=== PATIENT | male | born 1975 | race Hispanic/Latino ===

== ENCOUNTER → 2021-02-03 01:04 | Outpatient (CLI) | payer OTHER, SELFPAY ==
[2021-02-03 19:48] LABS: SARS-CoV-2 RNA PCR Negative
== END ==
PROVIDERS: PCP Family Medicine; Visit Provider Internal Medicine Gastroenterology
DX: Z01.812 Encounter for preprocedural laboratory examination (principal); Z20.822 Contact with and (suspected) exposure to COVID-19
CPT/HCPCS: C9803; U0003; U0005

== ENCOUNTER 2021-02-06 00:40 | Day surgery (SDC) | payer OTHER, SELFPAY ==
[2021-01-29 10:30] VITALS: BMI 30.6
[2021-02-06 09:49] VITALS: BP 109/71; PULSE 96; RESP 18; TEMP 36.7; O2SAT 98
[2021-02-06 10:00] LABS: Glucose Point of Care 262 (65-105)
[2021-02-06] MEDS: LACTATED RINGERS 1,000 ML 150 ML IV CONT (10:00)
--- NOTE | 2021-02-06 10:50 | WPDANESEPPF ---
Anes - Initial Pre Proc Eval Procedure: Operation Date: 02/06/21 11:00 Proposed Procedures p Esophagogastroduodenoscopy & Colonoscopy - Saul Whalen MD Date/Time: 02/06/21 10:50 Surgeon: Saul Whalen MD Pre Op Diagnosis: IBS,Diarrhea,Nausea,Abdominal Pain Patient Data Age: 46 Gender: M Height: 5 ft 9 in Weight: 93.5 kg Last Vital Signs Temp 36.7 C 02/06/21 09:49 Pulse 96 02/06/21 09:49 Resp 18 02/06/21 09:49 BP 109/71 02/06/21 09:49 Pulse Ox 98 02/06/21 09:49 Allergies Allergy/AdvReac Type Severity Reaction Status Date / Time No Known Allergies Allergy Unknown Verified 02/06/21 09:48 Home Medications Medication Instructions Recorded Confirmed Type aspirin 81 mg tablet,delayed 81 mg PO DAILY 08/28/20 02/06/21 History release insulin glargine 100 unit/mL 40 unit SUB-Q DAILY 08/28/20 02/06/21 History subcutaneous solution insulin lispro 100 unit/mL 35 unit SUB-Q DAILY 08/28/20 02/06/21 History subcutaneous pen dulaglutide [Trulicity] 0.75 mg SUBCUT WEEKLY 01/29/21 02/06/21 History rosuvastatin 10 mg PO DAILY 01/29/21 02/06/21 History Laboratory Tests 02/06/21 09:53 POC Capillary Glucose 262 mg/dl H mg/dl (65-105) Patient hx anesthesia problems: none Family hx anesthesia problems: none COUNT INCLUDES [facility] Past Medical History Medical History Diabetes Gastroparesis Hyperlipidemia Irritable bowel syndrome with diarrhea Nausea Social History Social History Smoking status: Never smoker Alcohol intake: never Substance use: never Substance use type: does not use Living arrangements: with family Spiritual care concerns: No Anes - Eval Final PreProcedure Day of Procedure 02/06/21 10:50 Patient weight: obese Heart: regular rate and rhythm Lungs: clear to auscultation Airway: Mallampati scale class II Neurological: alert and oriented Last oral intake: >/= 8 hours ASA classification: III Emergent: no Anesthetic plan: proceed Anesthesia type and monitoring: general GIVS and standard monitoring Informed Consent: The patient's anesthetic plan and its attendant risks and benefits were discussed with the patient/family/POA. Questions were solicited and answers provided to the satisfaction of the patient/family/POA.
--- NOTE | 2021-02-06 11:11 | PM.HPGS ---
History of Present Illness History of Present Illness Consent: Risks, benefits, and alternatives have been discussed and questions answered. Patient agrees to proceed with procedure. Chief complaint: IBS,Diarrhea,Nausea,Abdominal Pain Narrative: Justin Guzman is a 46 year old male with diarrhea and gastroparesis, he tried viberzi, cholestyramine but did not work, found that after using bridgette-seltzer his diarrhea will get better. He also had DM. Review of Systems Constitutional: Constitutional: Denies headache(s) and Denies weakness Eyes: Eyes: Denies blurry vision ENT: Reports Normal hearing present, Denies headache(s) and Denies neck pain Cardiovascular: Cardiovascular: Denies chest pain and Denies dyspnea Respiratory: Respiratory: Denies dyspnea Gastrointestinal: Gastrointestinal: Reports no additional gastrointestinal complaints Genitourinary: Genitourinary: Denies dysuria Musculoskeletal: Musculoskeletal: Denies neck pain Integumentary/Breasts: Skin/Breast: Denies dry skin Neurologic: Reports Normal hearing present, Denies headache(s) and Denies weakness Psychiatric: Psychiatric: Denies anxiety Endocrine: Endocrine: Denies change in body appearance Hematologic/Lymphatic: Hematologic/Lymphatic: Denies easy bleeding Allergic/Immunologic: Allergic/Immunologic: Denies urticaria PMFSH Past Medical History Medical History Diabetes Gastroparesis Hyperlipidemia Irritable bowel syndrome with diarrhea Nausea Social History Social History Smoking status: Never smoker Alcohol intake: never Substance use: never Substance use type: does not use Living arrangements: with family Spiritual care concerns: No Meds Home Medications and Allergies Home Medications Medication Instructions Recorded Confirmed Type aspirin 81 mg tablet,delayed 81 mg PO DAILY 08/28/20 02/06/21 History release insulin glargine 100 unit/mL 40 unit SUB-Q DAILY 08/28/20 02/06/21 History subcutaneous solution insulin lispro 100 unit/mL 35 unit SUB-Q DAILY 08/28/20 02/06/21 History subcutaneous pen dulaglutide [Trulicity] 0.75 mg SUBCUT WEEKLY 01/29/21 02/06/21 History rosuvastatin 10 mg PO DAILY 01/29/21 02/06/21 History Allergies Allergy/AdvReac Type Severity Reaction Status Date / Time No Known Allergies Allergy Unknown Verified 02/06/21 09:48 Vital Signs Vital Signs - 24 hr 02/06/21 09:49 Temperature 98.1 F Pulse Rate 96 Respiratory Rate 18 Blood Pressure 109/71 Pulse Oximetry 98 Exam Const: General: comfortable and no acute distress HENMT: General nose exam: Normal nares present Eyes: General: appearance normal, both eyes and all related structures Neck: Neck: no JVD Resp: Auscultation: clear to auscultation bilaterally Cardio: Rate: regular rate Rhythm: regular rhythm GI: Inspection: non-distended GI Palp: Yes Soft to palpation Skin: General skin exam: normal color Neuro: General: gait normal Speech: normal speech Extrem: General: normal to inspection Psych: Mental Status: mental status grossly normal Assessment and Plan Assessment and plan (1) Irritable bowel syndrome with diarrhea: Code(s): K58.0 - Irritable bowel syndrome with diarrhea Status: Acute Assessment and Plan: colonoscopy with bx, assess for microscopic colitis (2) Diabetes mellitus type 2 in nonobese: Code(s): E11.9 - Type 2 diabetes mellitus without complications Status: Acute (3) Gastroparesis: Code(s): K31.84 - Gastroparesis Status: Acute Assessment and Plan: egd with bx
[2021-02-06 11:46] VITALS: BP 109/74; PULSE 93; RESP 20; O2SAT 97
--- NOTE | 2021-02-06 11:48 | SUR.OPER ---
EGD START 1119, END 1124 COLONOSCOPY START 1129, END 1143
[2021-02-06 11:56] VITALS: BP 128/77; PULSE 90; RESP 19; O2SAT 100
[2021-02-06 12:04] LABS: Glucose Point of Care 255 (65-105)
[2021-02-06 12:06] VITALS: BP 140/89; PULSE 92; RESP 18; O2SAT 100
== END 2021-02-06 12:20 | disposition home or self-care (01) ==
PROVIDERS: PCP Family Medicine; Visit Provider Internal Medicine Gastroenterology
PROC: 0DJ08ZZ Inspection of Upper Intestinal Tract, Via Natural or Artificial Opening Endoscopic (ICD-10-PCS; CPT 43235; principal; 2021-02-06 11:00)
DX: K58.0 Irritable bowel syndrome with diarrhea (principal); D12.5 Benign neoplasm of sigmoid colon; K64.8 Other hemorrhoids; K29.50 Unspecified chronic gastritis without bleeding; K58.9 Irritable bowel syndrome, unspecified; R11.0 Nausea; R10.9 Unspecified abdominal pain; E11.9 Type 2 diabetes mellitus without complications; K31.84 Gastroparesis; E78.5 Hyperlipidemia, unspecified; Z79.82 Long term (current) use of aspirin; Z79.4 Long term (current) use of insulin; E66.9 Obesity, unspecified; Z68.30 Body mass index [BMI] 30.0-30.9, adult
CPT/HCPCS: 45385; 45380; 43239; 82948; 88305; 88342; C9803; J7120; U0003; U0005

== ENCOUNTER 2021-09-23 11:48 | Emergency (ER) | payer OTHER, SELFPAY ==
[2021-09-23 11:56] VITALS: BP 161/82; PULSE 75; RESP 18; TEMP 36.8; O2SAT 99
--- NOTE | 2021-09-23 11:56 | ED.EXTPRO ---
HPI - Extremity Problem General Chief complaint: Extremity Problem,Nontraumatic Stated complaint: Blister Lt Foot Source: patient and RN notes reviewed Mode of arrival: ambulatory Limitations: no limitations History of Present Illness HPI Narrative: Justin is a 46-year-old male patient [facility] Patient complains of left great toe swelling and redness. Patient states he had a similar episode about 3 weeks ago and was treated with Bactrim. Patient states he finished the medicine without any issues and the toe healed. Patient noticed last week that he had a blister on the left anterior toe from rubbing. Patient noticed on Friday that was increased redness and warm to touch. Patient patient has a history of type 2 diabetes and is currently on insulin. 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 MD Complaint: extremity swelling Related Data Home Medications Medication Instructions Recorded Confirmed aspirin 81 mg tablet,delayed 81 mg PO DAILY 08/28/20 09/23/21 release insulin glargine 100 unit/mL 40 unit SUB-Q DAILY 08/28/20 09/23/21 subcutaneous solution insulin lispro 100 unit/mL 35 unit SUB-Q DAILY 08/28/20 09/23/21 subcutaneous pen Allergies Allergy/AdvReac Type Severity Reaction Status Date / Time canagliflozin [From Invokana] AdvReac Severe Other Verified 09/23/21 12:15 Review of Systems Review of Systems: CONSTITUTIONAL: Denies body aches, fever, chills, or sweats. EYES: Denies visual changes, redness, or discharge. ENT: Denies rhinorrhea, congestion, sore throat, or otalgia. CARDIOVASCULAR: Denies chest pain, palpitations, or edema. RESPIRATORY: Denies cough or dyspnea. GASTROINTESTINAL: Denies abdominal pain, nausea, vomiting, or diarrhea. GENITOURINARY: Denies dysuria or hematuria. SKIN: Denies rash, itching. + left great toe red and swollen. MUSCULOSKELETAL: Denies back pain, joint pain, or myalgia. NEUROLOGIC: Denies headache, numbness, tingling, or weakness. PSYCH: Denies depression or anxiety. All systems reviewed & are unremarkable except as noted in HPI and below PMFSH Past Medical History Medical History Bloating Diabetes Gastroparesis Hyperlipidemia Irritable bowel syndrome with diarrhea Nausea Social History Social History Smoking status: Never smoker Alcohol intake: never Substance use: never Substance use type: does not use Spiritual care concerns: No Comments At time of signature, I have reviewed and agree with nursing past medical, surgical, social and family history unless otherwise noted. Please see nursing chart for further information. There is no relevant family history pertinent to the presenting complaint Exam Narrative: GENERAL: Well-appearing, well-nourished, and in no acute distress. HEAD: Normocephalic, atraumatic. EYES: EOMI. No redness or drainage. Conjunctivae normal. ENT: Mucous membranes pink and moist. Nares clear. No rhinorrhea. TMs normal bilaterally. Throat normal. Uvula midline. NECK: Normal AROM. Supple. No lymphadenopathy. CHEST: No respiratory distress. Clear to auscultation. HEART: Regular rate and rhythm. No murmur appreciated. Normal peripheral pulses. ABDOMEN: Soft, nontender, nondistended, normal active bowel sounds. MUSCULOSKELETAL: No bony tenderness. EXTREMITIES: Normal range of motion. No edema. SKIN: Warm, dry, no rash. Capillary refill normal. Normal skin turgor. Left great toe erythemic with approximately 1cm round raised non-fluctuant , warm to touch, erythema extends to metatarso phalangeal joint. NEURO: No focal deficits. Alert and oriented x3. Gait steady. PSYCH: Normal affect. No signs of depression or anxiety. Course Vital Signs Vital signs: Vital Signs Temperature 36.8 C 09/23/21 11:56 Pulse Rate 75
[2021-09-23 12:30] VITALS: BP 142/86
== END 2021-09-23 12:34 | disposition home or self-care (01) ==
PROVIDERS: Emergency Provider Nurse Practitioner Family; PCP Family Medicine
DX: L03.032 Cellulitis of left toe (principal); E11.9 Type 2 diabetes mellitus without complications; E78.5 Hyperlipidemia, unspecified; E11.43 Type 2 diabetes mellitus with diabetic autonomic (poly)neuropathy; K31.84 Gastroparesis
CPT/HCPCS: 99213; G0463

== ENCOUNTER 2022-02-10 13:59 | Emergency (ER) | payer OTHER, SELFPAY ==
[2022-02-10 14:10] VITALS: BP 120/70; PULSE 93; RESP 20; TEMP 37.3; O2SAT 98
--- NOTE | 2022-02-10 14:14 | ED.URI ---
HPI - URI/Sore Throat General Chief Complaint: Upper Respiratory Infection Stated Complaint: Cough/Chills/Headache Time Seen by Provider: 02/10/22 14:14 Source: patient Mode of arrival: ambulatory Limitations: no limitations History of Present Illness HPI Narrative: 47-year-old male presents with complaint of runny nose, sore throat, cough, fatigue, body aches for 3 days. Patient concerned that he has the flu. Afebrile. Denies shortness of breath and chest pain. Taking DayQuil and NyQuil to treat symptoms. All systems reviewed and negative except as noted above. Related Data Home Medications Medication Instructions Recorded Confirmed aspirin 81 mg tablet,delayed 81 mg PO DAILY 08/28/20 02/10/22 release insulin glargine 100 unit/mL 40 unit SUB-Q DAILY 08/28/20 02/10/22 subcutaneous solution insulin lispro 100 unit/mL 35 unit SUB-Q DAILY 08/28/20 02/10/22 subcutaneous pen Allergies Allergy/AdvReac Type Severity Reaction Status Date / Time canagliflozin [From Invokana] AdvReac Severe Other Verified 02/10/22 14:14 Review of Systems Review of Systems: CONSTITUTIONAL: Denies fever. Reports chills, or sweats. EYES: Denies visual changes, redness, or discharge. ENT: Reports rhinorrhea, congestion, sore throat. Denies otalgia. CARDIOVASCULAR: Denies chest pain, palpitations, or edema. RESPIRATORY: Reports cough. Denies dyspnea. GASTROINTESTINAL: Denies abdominal pain, nausea, vomiting, or diarrhea. GENITOURINARY: Denies dysuria or hematuria. SKIN: Denies rash or itching. MUSCULOSKELETAL: Denies back pain, joint pain. Reports myalgia. NEUROLOGIC: Denies headache, numbness, or weakness. PSYCHIATRIC: Denies anxiety or depression. All other systems reviewed are negative, except as documented in HPI. [facility] Past Medical History Medical History Bloating Diabetes Gastroparesis Hyperlipidemia Irritable bowel syndrome with diarrhea Nausea Social History Social History Smoking status: Never smoker Alcohol intake: never Substance use: never Substance use type: does not use Spiritual care concerns: No Comments At time of signature, agree with nursing past medical, surgical, social and family history. There is no relevant family history pertinent to the presenting complaint. Exam Narrative: GENERAL: This is a well-nourished, well-developed patient, in no apparent distress. HEAD: normocephalic, atraumatic. EYES: PERRL. Sclera clear/white. Vision is grossly intact. EARS: External ears normal, auditory canals clear and without drainage, TMs normal without perforation. Hearing grossly intact. NOSE: External nose normal. Clear nasal drainage noted to both naris, mild there erythema. THROAT: Mucous membranes moist. Mild erythema to posterior pharynx with clear postnasal drainage.. NECK: Neck supple, non-tender without lymphadenopathy, masses or thyromegaly. CARDIOVASCULAR: Regular rate and rhythm without murmurs, gallops, or rubs. RESPIRATORY: Clear to auscultation. Breath sounds equal bilaterally. No wheezes, rales, or rhonchi. GASTROINTESTINAL: Abdomen soft, non-tender, nondistended. Bowel sounds are active. No hepato-splenomegaly, or palpable masses. No guarding. SKIN: warm, Dry, intact with no suspicious lesions or rash, good texture and turgor. NEURO: awake, alert, and oriented to person, place and time. There were no obvious focal neurologic abnormalities. EXTREMITIES: No joint tenderness, effusion, or edema noted. No calf tenderness. Negative Homans sign bilaterally. BACK: Nontender without deformity. No CVA tenderness. Course Course Level of Care: Express Care Visit Vital Signs Vital signs: Vital Signs Temperature 37.3 C 02/10/22 14:10 Pulse Rate 93 02/10/22 14:10 Respiratory Rate 20 02/10/22 14:10 Blood Pressure 120/70 02/10/22 14:10 Pulse Oximetry 98 02/10/22 14:10
[2022-02-10 14:28] VITALS: BP 120/70; PULSE 93; RESP 20; TEMP 37.3; O2SAT 98
== END 2022-02-10 15:00 | disposition home or self-care (01) ==
PROVIDERS: Emergency Provider Nurse Practitioner Family; PCP Family Medicine
DX: J06.9 Acute upper respiratory infection, unspecified (principal); E11.43 Type 2 diabetes mellitus with diabetic autonomic (poly)neuropathy; K31.84 Gastroparesis; E78.5 Hyperlipidemia, unspecified; Z79.82 Long term (current) use of aspirin; Z79.4 Long term (current) use of insulin
CPT/HCPCS: 87426; 87804; 99213; C9803; G0463

== ENCOUNTER 2022-09-23 09:28 | Emergency (ER) | payer OTHER, SELFPAY ==
--- NOTE | 2022-09-23 09:31 | ED.LOWEXIN ---
HPI - Extremity Injury (Lower) General Chief Complaint: Extremity Injury, Lower Stated Complaint: Left Foot Injury Time Seen by Provider: 09/23/22 09:31 Source: patient and RN notes reviewed History of Present Illness HPI Narrative: Patient is a 47-year-old male who presents the urgent care with complaints of a left lower leg injury. Patient states that 1 week ago he dropped a wooden pallet on his leg and he has been doctoring the wound with peroxide, alcohol and Neosporin. Patient is unsure if he is up-to-date on a tetanus shot. Patient states that he has no pain to the area and has been ambulating without difficulty but he is concerned about the increased redness surrounding the wound. Patient has not been evaluated since the injury. No other acute complaints. No acute distress noted. Patient aware of the plan of care. Some parts of this dictation were generated by voice recognition software and may contain typographical and/or grammatical inaccuracies. Related Data Home Medications Medication Instructions Recorded Confirmed atorvastatin 20 mg tablet 20 mg PO DAILY 09/23/22 09/23/22 insulin lispro-aabc 100 unit/mL 15 unit subcut TID 09/23/22 09/23/22 subcutaneous solution (Lyumjev U-100 Insulin) Allergies Allergy/AdvReac Type Severity Reaction Status Date / Time No Known Allergies Allergy Verified 09/23/22 09:56 Review of Systems Review of Systems: CONSTITUTIONAL: Denies fever, chills, or sweats. EYES: Denies visual changes, redness, or discharge. ENT: Denies rhinorrhea, congestion, sore throat, or otalgia. CARDIOVASCULAR: Denies chest pain, palpitations, or edema. RESPIRATORY: Denies cough or dyspnea. GASTROINTESTINAL: Denies abdominal pain, nausea, vomiting, or diarrhea. GENITOURINARY: Denies dysuria or hematuria. SKIN: Reports a wound to left lower leg with redness MUSCULOSKELETAL: Denies back pain, joint pain, or myalgia. NEUROLOGIC: Denies headache, numbness, or weakness. All other systems reviewed are negative, except as documented in HPI. PMFSH Comments At the time of my signature, I reviewed and agree with the nursing past medical, surgical, social, and family history. There is no relevant family history pertinent to the patient complaint. Exam Narrative: GENERAL: This is a well-nourished, well-developed patient, in no apparent distress. HEAD: normocephalic, atraumatic. EYES: PERRL. Sclera clear/white. Vision is grossly intact. EARS: External ears normal NOSE: External nose normal with no obvious nasal discharge, nares without redness, no rhinorrhea. THROAT: Mucous membranes moist NECK: Neck supple SKIN: Open and healing skin tear measuring 9 cm in length and 2 cm at the widest area with surrounding 12 x 6 cm erythema NEURO: awake, alert, and oriented to person, place and time. There were no obvious focal neurologic abnormalities. EXTREMITIES: No clubbing, cyanosis, or edema. No joint tenderness, effusion, or edema noted. No calf tenderness. Negative Homans sign left Course Course Level of Care: Express Care Visit Vital Signs Vital signs: Vital Signs Temperature 98.4 F 09/23/22 09:40 Pulse Rate 89 09/23/22 09:40 Respiratory Rate 20 09/23/22 09:40 Blood Pressure 146/86 H 09/23/22 09:40 Pulse Oximetry 100 09/23/22 09:40 Oxygen Delivery Room Air 09/23/22 09:40 Temperature 98.4 F 09/23/22 09:58 Pulse Rate 89 09/23/22 09:58 Respiratory Rate 20 09/23/22 09:58 Blood Pressure 146/86 H 09/23/22 09:58 Pulse Oximetry 100 09/23/22 09:58 Oxygen Delivery Room Air 09/23/22 09:58 Reviewed-patient is informed that they may have pre-hypertension or hypertension based on a blood pressure reading in the department. I recommend the patient call the primary care provider listed on their discharge instructions or a physician of their choice this week to arrange follow-up for further evaluation of possible pre-hypertension or hypertension. MDM - Extremity Injury (Lo
[2022-09-23 09:40] VITALS: BP 146/86; PULSE 89; RESP 20; TEMP 36.9; O2SAT 100
[2022-09-23 09:58] VITALS: BP 146/86; PULSE 89; RESP 20; TEMP 36.9; O2SAT 100
[2022-09-23] MEDS: TETANUS,DIPHTHERIA,AC PERTUSSIS ADULT (0.5 ML) BOOSTRIX IM (10:12)
== END 2022-09-23 10:32 | disposition home or self-care (01) ==
PROVIDERS: Emergency Provider Nurse Practitioner Family
DX: S81.812A Laceration without foreign body, left lower leg, initial encounter (principal); L08.9 Local infection of the skin and subcutaneous tissue, unspecified; W20.8XXA Other cause of strike by thrown, projected or falling object, initial encounter; Z23 Encounter for immunization; E78.00 Pure hypercholesterolemia, unspecified; E11.9 Type 2 diabetes mellitus without complications
CPT/HCPCS: 90471; 90715; 99213; G0463

== ENCOUNTER 2023-02-25 05:25 | Observation (INO) | payer OTHER, SELFPAY ==
--- NOTE | ~2023-02-25 | XR_ITS ---
EXAMINATION: XR foot LT min 3V DATE: 02/25/2023 16:22 INDICATION: Left foot wound, ulcer of the great toe and fifth toe TECHNIQUE: Dorsoplantar, lateral, and 2 oblique views of the left foot were obtained. COMPARISON: 11/27/2016 and today FINDINGS: Osteomyelitis of the fifth toe is again noted as described on radiographs from earlier toda y. There is soft tissue swelling of the first toe. No definite associated osseous abnormality is iden tified. 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 IMPRESSION: 1. Soft tissue swelling of the first toe without associated osseous abnormality. 2. Osteomyelitis of the fifth toe. Reviewed, dictated and finalized at location F. IMPRESSION: 1. Soft tissue swelling of the first toe without associated osseous abnormality . 2. Osteomyelitis of the fifth toe.
--- NOTE | ~2023-02-25 | XR_ITS ---
EXAMINATION: XR toe 5th LT min 2V DATE: 02/25/2023 09:50 INDICATION: Diabetic ulcer of left fifth toe. TECHNIQUE: 4 views of left fifth toe were obtained. COMPARISON: Left foot radiographs 11/13/2013 FINDINGS: There is dorsal subluxation of fifth middle phalanx with respect to the proximal phalanx. T here are erosions of the head of the fifth proximal phalanx and the fifth middle and distal phalanges , consistent with osteomyelitis. There is soft tissue swelling of the fifth digit. IMPRESSION: 1. Osteomyelitis of the fifth digit phalanges. Reviewed, dictated and finalized at location A.
[2023-02-25 05:35] VITALS: BP 159/83; PULSE 86; RESP 20; O2SAT 100
--- NOTE | 2023-02-25 07:41 | ED.EXTPRO ---
HPI - Extremity Problem General Chief complaint: Extremity Problem,Nontraumatic Stated complaint: toe infection Time Seen by Provider: 02/25/23 07:41 Source: patient and RN notes reviewed Mode of arrival: ambulatory Limitations: no limitations History of Present Illness HPI Narrative: Patient is 48 years old male presented to the ED with pain at the left fifth toe started couple weeks ago, started on Keflex 3 times daily for the last 5 days without improvement. His foot is still warm, hot to touch, with pain, no discharge. Patient wears steel boot at work. He denies any fever, chills, nausea, vomiting. Related Data Home Medications Medication Instructions Recorded Confirmed atorvastatin 20 mg tablet 20 mg PO DAILY 09/23/22 09/23/22 insulin lispro-aabc 100 unit/mL 15 unit subcut TID 09/23/22 09/23/22 subcutaneous solution (Lyumjev U-100 Insulin) Allergies Allergy/AdvReac Type Severity Reaction Status Date / Time No Known Allergies Allergy Verified 02/25/23 07:33 Review of Systems Review of Systems: All systems reviewed & are unremarkable except as noted in HPI and below Exam Narrative: General appearance: Well-developed, well-nourished Skin: Normal color Head: Normocephalic, nontraumatic Eyes: Clear conjunctiva ENT: Oropharynx normal, ears normal, nose normal Neck: Supple, nontender Chest and respiratory: Airway patent, no respiratory distress, no accessory muscle use Heart: Regular rate/rhythm Abdomen: Soft, nontender, no organomegaly, quiet bowel sounds Vascular: Normal peripheral pulses, normal capillary refill. 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, no gross motor deficit Course Reevaluation(s) Reevaluation #1: No new changes compared to on arrival Date: 02/25/23 Time: 10:49 Vital Signs Vital signs: Vital Signs Pulse Rate 86 02/25/23 05:35 Respiratory Rate 20 02/25/23 05:35 Blood Pressure 159/83 H 02/25/23 05:35 Pulse Oximetry 100 02/25/23 05:35 Pulse Rate 86 02/25/23 05:35 Respiratory Rate 20 02/25/23 05:35 Blood Pressure 159/83 H 02/25/23 05:35 Pulse Oximetry 100 02/25/23 05:35 MDM - Extremity (Nontraumatic) MDM Narrative Medical decision making narrative: 48 years old male with history of diabetes presents with Improving ulcer and pain at the left fifth toe after starting on Keflex for the last 5 days. Differential diagnosis diabetic ulcer, osteomyelitis, failed outpatient treatment. Work-up today showed normal CBC, normal CMP with glucose of 155, x-ray of the left fifth toe showed osteomyelitis of the phalanges. Patient received vancomycin on arrival to the ED, admission to the hospitalist for further evaluation is recommended. Differential Diagnosis Differential diagnosis: Likely other (Failed outpatient treatment, osteomyelitis, diabetic ulcer) Lab Data 02/25/23 08:11 02/25/23 08:11 Labs: Lab Results 02/25/23 02/25/23 Range/Units 08:11 08:11 WBC 5.9 (4.5-10.0) K/mm3 RBC 4.31 L (4.6-6.20) M/mm3 Hgb 13.1 L (14.0-18.0) g/dL Hct 38.3 L (42.0-52.0) % MCV 88.9 (80-100) fl MCH 30.4 (26-34) pg MCHC 34.2 (32-36) g/dl RDW 12.7 (11.5-14.5) % Plt Count 248 (150-375) k/mm3 MPV 9.5 (7.4-10.4) fl Immature Gran % (Auto) 0.3 (0-0.5) % Neut % (Auto) 55.0 (45.5-73.1) % Lymph % (Auto) 28.2 (18.3-44.2) % Pender % (Auto) 9.0 H (2.6-8.5) % Eos % (Auto) 6.8 H (0-4.4) % Baso % (Auto) 0.7 (0.2-1.2) % Lymph # (Auto) 1.67 (0.9-3.2) K
[2023-02-25 08:22] LABS: Basophils Percent Auto 0.7 % (0.2-1.2); Eosinophils Absolute Auto 0.4 K/mm3 (0-0.3); Eosinophils Percent Auto 6.8 % (0-4.4); Hematocrit 38.3 % (42.0-52.0); Hemoglobin 13.1 g/dL (14.0-18.0); Immature Granulocyte Absolute 0.02 K/mm3 (0.00-0.031); Immature Granulocyte Percent A 0.3 % (0-0.5); Lymphocytes Absolute Auto 1.67 K/mm3 (0.9-3.2); Lymphocytes Percent Auto 28.2 % (18.3-44.2); Mean Corpuscular HGB Conc 34.2 g/dl (32-36); Mean Corpuscular Hemoglobin 30.4 pg (26-34); Mean Corpuscular Volume 88.9 fl (80-100); Mean Platelet Volume 9.5 fl (7.4-10.4); Monocytes Absolute Auto 0.5 K/mm3 (0.1-0.6); Neutrophils Absolute Auto 3.3 K/mm3 (1.3-6.7); Platelet Count Result 248 k/mm3 (150-375); Red Blood Count 4.31 M/mm3 (4.6-6.20); Red Cell Distribution Width 12.7 % (11.5-14.5); White Blood Count 5.9 K/mm3 (4.5-10.0)
[2023-02-25 08:35] LABS: Anion Gap 6 mmol/L (8-16); Blood Urea Nitrogen 26 mg/dL (9-20); Calcium 8.5 mg/dL (8.4-10.2); Carbon Dioxide 29 mmol/L (22-30); Chloride 103 mmol/L (98-107); Estimated CRCL calculation 73 ml/min; Estimated Glomerular Filt Rate 59; Glucose 155 mg/dL (65-110); Potassium 4.3 mmol/L (3.4-5.0); Sodium 138 mmol/L (137-145)
--- NOTE | 2023-02-25 12:45 | PM.IMHP ---
H&P: HPI History of Present Illness Date/Time: 02/25/23 12:45 Chief Complaint: Left 5th toe blister. Narrative: This is a very pleasant 48-year-old male with insulin-dependent diabetes and hyperlipidemia who presented to the emergency department from home for evaluation of a left 5th toe blister. Patient provides the following history. Historically his diabetes was not very well controlled with a reported hemoglobin A1c of 13.5% in August 2022. Since that time he has really changed his lifestyle and his most recent A1c was 7%. He has an insulin pump, has been more mindful of his diet, and he has been working out at the gym. He does not have any significant symptoms however was told that he has evidence of mild neuropathy on exam. In any event about 2 weeks ago he noticed a blister on the lateral side of the left 5th toe. He recently started a new job and is now wearing steel-toed boots and he wonders if perhaps they are rubbing that area. About a week ago the blister ruptured and he has had some bloody drainage. He saw his primary doctor and was prescribed cephalexin and despite being compliant with the drug the area continues to worsen and today he noticed that the wound appeared darker and he came in for evaluation. X-rays are consistent with osteomyelitis and he is being admitted in this setting for IV antibiotics and consideration for amputation. At the time my evaluation he has no complaints. He denies fever, chills, sweats, nausea, and vomiting. Review of Systems Review of Systems: Twelve systems were reviewed and are negative except for as per HPI. FORMERLY [facility], [facility]–1983 Past Medical History Medical History Clawtoe, acquired Hypercholesterolemia Insulin dependent diabetes mellitus Surgical History Surgical History History of partial ray amputation of second toe of right foot Family History Family History Mother Diabetes mellitus Hypertension Father Diabetes mellitus Glaucoma Heart disease Social History Social History Social History: Surrogate medical decision maker: Vanda Guzman, . Code status: Full code. Smoking status: Never smoker Alcohol intake: never Substance use: never Lack of Transportation: No Lack of Food: Never True Current Housing: I Have Housing Concerned About Future Housing: No Difficulty Paying Gas/Electric Bills: No Difficulty Paying for Meds: No Currently Unemployed: No Education: High School Diploma/GED Difficulty w/ Childcare or Family Care: No Additional living arrangements comments: Lives in [place]. Additional occupation/education comments: Warehouse. Spiritual care concerns: No Meds Home Medications and Allergies Home Medications Medication Instructions Recorded Confirmed Type atorvastatin 20 mg tablet 40 mg PO DAILY 09/23/22 02/25/23 History blood-glucose meter,continuous 02/25/23 02/25/23 History (Dexcom G6 Piecer Up) blood-glucose sensor (Dexcom G6 02/25/23 02/25/23 History Sensor device) blood-glucose transmitter (Dexcom 02/25/23 02/25/23 History G6 Transmitter device) insulin lispro-aabc 100 unit/mL See Rx Instructions .Route .COMPLEX 02/25/23 02/25/23 History subcutaneous solution (Lyumjev U-100 Insulin) insulin pump cart,cont inf,BT 02/25/23 02/25/23 History (Omnipod Dash Pods (Gen 4) subcutaneous cartridge) lisinopril 2.5 mg tablet 2.5 mg PO DAILY 02/25/23 02/25/23 History rifaximin 550 mg tablet (Xifaxan) 550 mg PO TIDWM PRN Large meals 02/25/23 02/25/23 History Allergies Allergy/AdvReac Type Severity Reaction Status Date / Time No Known Allergies Allergy Verified 02/26/23 11:29 Vital Signs Vital Signs - 24 hr 02/25/23 05:35 Pulse Rate 86 Respiratory Rate 20
--- NOTE | 2023-02-25 13:10 | ADMGEN ---
This patient, Justin Guzman, was admitted to [facility] Surg Room 325-02. Patient/family oriented to hospital policies and general routines including ID bracelet, bed and alarms, visiting hours, pain management, procedures, bathroom and other care routines, personal items, smoking policy, room service/diet, and visiting hours. Information on how to activate the Rapid Response Team has been discussed. Patient/Family are encouraged to report perceived risks to care and to ask questions if they do not understand what they are told or what they should do.
[2023-02-25 13:38] LABS: Hemoglobin A1C 6.8 % (<5.7)
[2023-02-25 14:00] VITALS: BP 125/67; PULSE 86; RESP 18; TEMP 36.1; O2SAT 100
[2023-02-25] MEDS: metroNIDAZOLE 500 MG/ISO 100ML 500 MG/100 ML BAG 100 MG IVPB ×2 (14:15→18:05)
--- NOTE | 2023-02-25 16:14 | PM.CNOR ---
Assessment and Plan Assessment and plan (1) Osteomyelitis of fifth toe of left foot: Code(s): M86.9 - Osteomyelitis, unspecified <Jeanette LuchoHELADIO Allen - Last Filed: 02/25/23 16:26> Status: Acute <Jeanette Beebedanyell SENIOR PARALEGAL - Last Filed: 02/25/23 16:26> Assessment and Plan: History, exam and radiographs reviewed depth with the patient and his at bedside. Radiographs of the left 5th ray reveal erosions of the head of the fifth proximal phalanx and the fifth middle and distal phalanges, consistent with osteomyelitis. patient has a wound which probes 1.5 cm depth on the lateral aspect of the 5th ray with palpable bone. Discussed condition, nature, etiology and course of natural history. Conservative and operative treatment options reviewed as well as the risks and benefits of each. Discussed IV antibiotic treatment for approximately 6 weeks with the hope of eradication of osteomyelitis versus surgical resection. Patient and desire surgical treatment at this time with left 5th ray amputation. Risks of surgery including but not limited to neurovascular damage, wound complications, blood clot, pulmonary embolus, stroke, myocardial infarction, anesthetic risks up to and including were reviewed. Continued pain and possible dysfunction were explained. No guarantees were offered. The patient understands and wishes to proceed. Plan: Left 5th Ray Amputation by Dr. Porter ELIZABETH at midnight Obtain consent Continue Antibiotics in the interim. Keep wound covered with dry gauze dressing. <Jeanette LuchoPRIMO AllenP - Last Filed: 02/25/23 16:26> (2) Diabetic toe ulcer: Code(s): E11.621 - Type 2 diabetes mellitus with foot ulcer; L97.509 - Non-pressure chronic ulcer of other part of unspecified foot with unspecified severity <JeanettePRIMO AhumadaP - Last Filed: 02/25/23 16:26> Status: Acute <Jeanette YepezHELADIO Allen - Last Filed: 02/25/23 16:26> Assessment and Plan: Patient does have an ulcer at the distal aspect of the left hallux. Radiographs obtained were only that of the left 5th ray. Recommend left foot radiographs to rule out osteomyelitis. Patient may benefit from daily dressing changes with silver gel and covered dry. Will begin dressing changes after left 5th ray amputation pending no other surgical indication is necessary. <PRIMO LopezP - Last Filed: 02/25/23 16:26> (3) Insulin dependent diabetes mellitus: Status: Acute <PRIMO LopezP - Last Filed: 02/25/23 16:26> Assessment and Plan: Most recent hemoglobin A1c is 6.8%. Discussed importance of continued close diabetic control for optimal healing in the postoperative state. Patient will require custom orthotics and shoes in order to return to work without the risk of recurrent diabetic foot ulcers and infections. Patient & verbalized understanding. <PRIMO LopezP - Last Filed: 02/25/23 16:26> (4) Clawtoe, acquired: Qualifiers: Laterality: left Qualified Code(s): M20.5X2 - Other deformities of toe(s) (acquired), left foot <PRIMO LopezP - Last Filed: 02/25/23 16:26> Code(s): M20.5X9 - Other deformities of toe(s) (acquired), unspecified foot <Jeanette Baugh, SENIOR PARALEGAL - Last Filed: 02/25/23 16:26> Status: Acute <PRIMO LopezP - Last Filed: 02/25/23 16:26> Assessment and Plan: Patient seen and examined. Consult reviewed and agree with findings. Left 5th toe osteo. Patient desires removal. <Shiraz Buenrostro MD - Last Filed: 02/26/23 12:28> Assessment and Plan: Reviewed history, exam, radiographs and lab results with attending physician consult the surgeon, Dr. Shiraz caldwell. Agrees with current plan as indicated above. No further recommendations at this time. <Jeanette Baugh, SENIOR PARALEGAL - Last Filed: 02/25/23 16:26> Reviewed history, exam, radiographs and lab results with attending physician consult surgeon, Agrees with current plan as
[2023-02-25 17:15] LABS: Glucose Point of Care 63 mg/dl (65-105)
[2023-02-25 18:45] LABS: Glucose Point of Care 131 mg/dl (65-105)
[2023-02-25 20:58] LABS: Glucose Point of Care 201 mg/dl (65-105)
[2023-02-25 22:00] VITALS: BP 121/67; PULSE 91; RESP 18; TEMP 36.1; O2SAT 97
[2023-02-26] VITALS (11 sets, daily range): BP systolic 116–135; BP diastolic 66–81; PULSE 75–89; RESP 16–18; TEMP 35.8–36.6; O2SAT 94–100
[2023-02-26] MEDS: metroNIDAZOLE 500 MG/ISO 100ML 500 MG/100 ML BAG 100 MG IVPB ×4 (00:02→17:30)
[2023-02-26 06:22] LABS: Hematocrit 36.9 % (42.0-52.0); Hemoglobin 12.4 g/dL (14.0-18.0); Mean Corpuscular HGB Conc 33.6 g/dl (32-36); Mean Corpuscular Volume 89.1 fl (80-100); Mean Platelet Volume 9.7 fl (7.4-10.4); Platelet Count Result 232 k/mm3 (150-375); Red Blood Count 4.14 M/mm3 (4.6-6.20); Red Cell Distribution Width 12.4 % (11.5-14.5); White Blood Count 5.9 K/mm3 (4.5-10.0)
[2023-02-26 06:32] LABS: Alanine Aminotransferase 21 U/L (6-50); Albumin Level 3.9 g/dL (3.5-5.1); Alkaline Phosphatase 97 U/L (38-126); Anion Gap 8 mmol/L (8-16); Aspartate Amino Transferase 24 U/L (17-59); Bilirubin,Total 0.6 mg/dL (0.2-1.3); Blood Urea Nitrogen 21 mg/dL (9-20); Calcium 8.3 mg/dL (8.4-10.2); Carbon Dioxide 25 mmol/L (22-30); Chloride 102 mmol/L (98-107); Estimated CRCL calculation 73 ml/min; Estimated Glomerular Filt Rate 59; Glucose 208 mg/dL (65-110); Sodium 135 mmol/L (137-145)
[2023-02-26 06:32] LABS: Glucose Point of Care 220 mg/dl (65-105)
[2023-02-26 06:43] LABS: Potassium 4.2 mmol/L (3.4-5.0)
[2023-02-26] MEDS: lisinopriL 2.5 MG TABLET PO (07:57)
[2023-02-26] MEDS: ATORVASTATIN 40 MG TABLET PO (07:57)
[2023-02-26 10:53] LABS: Glucose Point of Care 221 mg/dl (65-105)
--- NOTE | 2023-02-26 11:09 | PC.NURSE ---
to OR per bed
[2023-02-26] MEDS: LACTATED RINGERS 1,000 ML 30 ML IV CONT ×2 (11:20→13:22)
--- NOTE | 2023-02-26 12:28 | WPDANESEPPF ---
Anes - Initial Pre Proc Eval Procedure: Operation Date: 02/26/23 12:30 Proposed Procedures p Amputation Left Fifth Toe - Shiraz Buenrostro MD Date/Time: 02/26/23 12:28 Surgeon: Jarad Ness MD Pre Op Diagnosis: Osteomyelitis Diabetic Lt fifth toe Patient Data Age: 48 Gender: M Height: 1.75 m Weight: 92.8 kg Last Vital Signs Temp 97.2 F L 02/26/23 11:30 Pulse 87 02/26/23 11:30 Resp 16 02/26/23 11:30 BP 135/78 02/26/23 11:30 Pulse Ox 99 02/26/23 11:30 O2 Del Method Room Air 02/26/23 11:30 Allergies Allergy/AdvReac Type Severity Reaction Status Date / Time No Known Allergies Allergy Verified 02/26/23 11:29 Home Medications Medication Instructions Recorded Confirmed Type atorvastatin 20 mg tablet 40 mg PO DAILY 09/23/22 02/25/23 History blood-glucose meter,continuous 02/25/23 02/25/23 History (Dexcom G6 Linux Server Administrator) blood-glucose sensor (Dexcom G6 02/25/23 02/25/23 History Sensor device) blood-glucose transmitter (Dexcom 02/25/23 02/25/23 History G6 Transmitter device) insulin lispro-aabc 100 unit/mL See Rx Instructions .Route .COMPLEX 02/25/23 02/25/23 History subcutaneous solution (Lyumjev U-100 Insulin) insulin pump cart,cont inf,BT 02/25/23 02/25/23 History (Omnipod Dash Pods (Gen 4) subcutaneous cartridge) lisinopril 2.5 mg tablet 2.5 mg PO DAILY 02/25/23 02/25/23 History rifaximin 550 mg tablet (Xifaxan) 550 mg PO TIDWM PRN Large meals 02/25/23 02/25/23 History Laboratory Tests 02/25/23 02/25/23 02/25/23 08:09 17:03 18:08 WBC RBC Hgb Hct MCV MCH MCHC RDW Plt Count MPV Sodium Potassium Chloride Carbon Dioxide Anion Gap BUN Creatinine Estim Creat Clear Calc Estimated GFR Glucose POC Capillary Glucose 63 mg/dl L mg/dl 131 mg/dl H mg/dl (65-105) (65-105) Hemoglobin A1c 6.8 % H % (<5.7) Calcium Magnesium Total Bilirubin AST ALT Alkaline Phosphatase Total Protein Albumin 02/25/23 02/26/23 02/26/23 20:25 05:38 05:52 WBC 5.9 K/mm3 K/mm3 (4.5-10.0) RBC 4.14 M/mm3 L M/mm3 (4.6-6.20) Hgb 12.4 g/dL L g/dL (14.0-18.0) Hct 36.9 % L % (42.0-52.0) MCV 89.1 fl fl (80-100) MCH 30.0 pg pg (26-34) MCHC 33.6 g/dl g/dl (32-36) RDW 12.4 % % (11.5-14.5) Plt Count 232 k/mm3 k/mm3 (150-375) MPV 9.7 fl fl (7.4-10.4) Sodium Potassium Chloride Carbon Dioxide Anion Gap BUN Creatinine Estim Creat Clear Calc Estimated GFR Glucose POC Capillary Glucose 201 mg/dl H mg/dl 220 mg/dl H mg/dl (65-105) (65-105) Hemoglobin A1c Calcium Magnesium Total Bilirubin AST ALT Alkaline Phosphatase Total Protein Albumin 02/26/23 02/26/23 05:52 10:44 WBC RBC Hgb Hct MCV MCH MCHC RDW Plt Count MPV Sodium 135 mmol/L L mmol/L (137-145) Potassium 4.2 mmol/L mmol/L (3.4-5.0) Chloride 102 mmol/L mmol/L (98-107) Carbon Dioxide 25 mmol/L mmol/L (22-30) Anion Gap 8 mmol/L mmol/L (8-16) BUN 21 mg/dL H mg/dL (9-20) Creatinine 1.30 mg/dL mg/dL (0.7-1.3) Estim Creat Clear Calc 73 ml/min ml/min Estimated GFR 59 (59 - ) Glucose 208 mg/dL H mg/dL (65-110) POC Capillary Gl
--- NOTE | 2023-02-26 12:29 | WPDHPUPDATE1 ---
History and Physical Update Update Date/Time: 02/26/23 12:29 History and Physical has been reviewed, including an updated exam of the patient. There are NO changes in the patient's condition. Risks, benefits, and alternatives have been discussed and questions answered. Patient agrees to proceed with procedure. PLAN: Left foot 5th toe amputation
[2023-02-26] MEDS: ceFAZolin SODIUM 1 GM VIAL (13:06)
--- NOTE | 2023-02-26 13:17 | P.OP_ITS ---
Procedure Note - Detailed Date of Procedure 02/26/23 Pre-op Diagnosis Osteomyelitis Diabetic Lt fifth toe, diabetic ulcer left hallux and 4th toe Post-op Diagnosis Same Procedure Performed left 5th toe amputation metatarsophalangeal joint, excisional debridement diabetic toe ulcer hallux and Surgeon Shiraz Buenrostro MD Physiotherapy Assistant 1st assist Anesthesia General Indications 48-year-old diabetes and peripheral neuropathy with left small toe osteomyelitis and diabetic ulcer over the hallux and 4th toe. Presents for operative treatment. Findings Chronic appearing osteo of the proximal phalanx of the 4th toe. Description of Procedure Patient identified in the preoperative holding. Informed consent given. Operative extremity marked. Patient received intravenous antibiotics. Patient brought to the operating room where underwent general anesthetic by anesthesia team. Positioned supine on operating room table. Time-out performed confirming the patient, site of the surgery and the plan. Left foot prepped draped usual sterile surgical fashion using a Betadine prep solution. Foot ankle exsanguinated with an Esmarch which was secured at the ankle as a tourniquet. Elliptical incision made with 15 blade knife the base of the small toe. Hemostasis controlled electrocautery. Metatarsophalangeal joint was released circumferentially in the toe was removed. The fracture through the proximal phalanx was noted which communicated with the ulcer with bone that appeared necrotic. This was cultured and sent off. Wound then irrigated with solution. Soft tissue closed with 3-0 Monocryl interrupted suture. Skin repaired with 0 Prolene interrupted suture. Diabetic ulcer over the hallux distal aspect and the 4th toe distal aspect measured 2 x 2 cm and 1.5 x 1.5 cm respectively. 15 blade knife used to sharply debride skin, subcutaneous tissue and muscle that was nonviable and devitalized from the 2 ulcers. This was excised and passed off. Resection was taken to [facility] viable tissue. Wounds irrigated and left open. Sterile dressing applied. The patient was then woken from anesthesia, extubated and taken to the recovery room in stable condition. All sponge, needle, instrument counts were correct at the end of the case. Estimated Blood Loss 2 Tourniquet Time 15 Drains No Packing No Pathology Yes ( Cultures and left small toe) Complications None Condition Stable Disposition PACU [facility] Billing Surgery - Charge Forward: Surgery Billing ([id number], [id number])
[2023-02-26 13:38] LABS: Glucose Point of Care 210 mg/dl (65-105)
--- NOTE | 2023-02-26 14:28 | PC.NURSE ---
patient returning to floor from OR
[2023-02-26] MEDS: SODIUM CHLORIDE 0.9% IV 1,000 ML 125 ML IV CONT (14:37)
[2023-02-26 16:52] LABS: Glucose Point of Care 315 mg/dl (65-105)
[2023-02-26] MEDS: INSULIN ASPART (*BKC) 100 UNITS/ML SUB-Q (16:58)
[2023-02-26] MEDS: HYDROcodone/acetaminophen (*CRX) 5-325 MG TABLET 1 TAB PO (17:31)
--- NOTE | 2023-02-26 17:52 | PM.IMPN ---
Progress Note: A&P Assessment and Plan (1) Osteomyelitis of fifth toe of left foot: Code(s): M86.9 - Osteomyelitis, unspecified Status: Acute (2) Insulin dependent diabetes mellitus: Status: Acute (3) Hypercholesterolemia: Code(s): E78.00 - Pure hypercholesterolemia, unspecified Status: Acute (4) Diabetic toe ulcer: Code(s): E11.621 - Type 2 diabetes mellitus with foot ulcer; L97.509 - Non-pressure chronic ulcer of other part of unspecified foot with unspecified severity Status: Acute (5) Elevated blood pressure reading: Code(s): R03.0 - Elevated blood-pressure reading, without diagnosis of hypertension Status: Acute Plan The patient presented to the emergency department for evaluation of a worsening diabetic foot ulcer on the left 5th toe as per HPI. There is evidence of osteomyelitis on radiographs and the wound does probe to bone. He will be NPO after midnight for left 5th ray amputation tomorrow per Dr. Buenrostro. Analgesics available as needed. Insulin pump will be removed tonight as he is NPO and that can be resumed following surgery. Initiate sliding scale insulin in the interim. He also has an ulcerated ulcer on the left hallux and local wound care has been initiated. Patient reports that he has gotten his diabetes under pretty good control in the last 5 months or so and his A1c today 6.8%. We discussed the importance of continuing to keep his glucose tightly controlled. Blood pressures were reviewed and they have been running in the 140 systolic. He has no known history of hypertension. For now will continue to monitor closely; he is on 2.5 mg of lisinopril for renal protection in the setting of diabetes. There is certainly room to increase that dose if his blood pressures continue to trend high. The rest of his home medications will be reviewed and resumed as appropriate. 02/26/2023 interval history: 48-year-old male with history of uncontrolled diabetes with hemoglobin A1c of 13.5 presented with a left 5th toe wound, x-ray of the toe showed Osteomyelitis of the fifth digit phalanges, patient was seen by orthopedic surgeon recommended amputation and patient agreed, today patient had amputation of the left 5th toe, will continue to monitor patient be seen by orthopedic surgeon tomorrow and further recommendation to follow. Subjective Date/time seen: 02/26/23 17:52 Left 5th toe blister. Narrative: This is a very pleasant 48-year-old male with insulin-dependent diabetes and hyperlipidemia who presented to the emergency department from home for evaluation of a left 5th toe blister.? Patient provides the following history. Historically his diabetes was not very well controlled with a reported hemoglobin A1c of 13.5% in August 2022. Since that time he has really changed his lifestyle and his most recent A1c was 7%. He has an insulin pump, has been more mindful of his diet, and he has been working out at the gym. He does not have any significant symptoms however was told that he has evidence of mild neuropathy on exam. In any event about 2 weeks ago he noticed a blister on the lateral side of the left 5th toe. He recently started a new job and is now wearing steel-toed boots and he wonders if perhaps they are rubbing that area. About a week ago the blister ruptured and he has had some bloody drainage. He saw his primary doctor and was prescribed cephalexin and despite being compliant with the drug the area continues to worsen and today he noticed that the wound appeared darker and he came in for evaluation. X-rays are consistent with osteomyelitis and he is being admitted in this setting for IV antibiotics and consideration for amputation. At the time my evaluation he has no complaints. He denies fever, chills, sweats, nausea, and vomiting. 02/26/2023 interval history: 48-year-old male with history of uncontrolled diabetes with hemoglobin A1c of 13.5 presented with a left 5th toe wound, x-ray of the toe
[2023-02-26 20:15] LABS: Vancomycin Trough 10.2 ug/mL (10.0-20.0)
[2023-02-26 21:19] LABS: Glucose Point of Care 328 mg/dl (65-105)
[2023-02-26] MEDS: FAMOTIDINE 20 MG TABLET PO (22:11)
[2023-02-26] MEDS: INSULIN ASPART (*BKC) 100 UNITS/ML 8 UNITS SUB-Q (22:11)
[2023-02-27 00:03] VITALS: BP 160/77; PULSE 88; RESP 16; TEMP 35.9; O2SAT 100
[2023-02-27] MEDS: metroNIDAZOLE 500 MG/ISO 100ML 500 MG/100 ML BAG 100 MG IVPB ×2 (00:30→05:07)
[2023-02-27] MEDS: INSULIN GLARGINE (*BKC) 100 UNITS/ML 28 UNITS SUB-Q (00:30)
[2023-02-27 04:03] VITALS: BP 128/66; PULSE 79; RESP 16; TEMP 36; O2SAT 100
[2023-02-27] MEDS: HYDROcodone/acetaminophen (*CRX) 5-325 MG TABLET 1 TAB PO (05:21)
[2023-02-27 06:25] LABS: Hematocrit 35.8 % (42.0-52.0); Hemoglobin 12.1 g/dL (14.0-18.0); Mean Corpuscular HGB Conc 33.8 g/dl (32-36); Mean Corpuscular Hemoglobin 29.7 pg (26-34); Mean Platelet Volume 9.9 fl (7.4-10.4); Platelet Count Result 258 k/mm3 (150-375); Red Blood Count 4.07 M/mm3 (4.6-6.20); Red Cell Distribution Width 12.3 % (11.5-14.5); White Blood Count 8.9 K/mm3 (4.5-10.0)
[2023-02-27 06:47] LABS: Anion Gap 8 mmol/L (8-16); Blood Urea Nitrogen 21 mg/dL (9-20); Calcium 8.4 mg/dL (8.4-10.2); Carbon Dioxide 25 mmol/L (22-30); Chloride 102 mmol/L (98-107); Estimated CRCL calculation 72 ml/min; Estimated Glomerular Filt Rate 59; Glucose 246 mg/dL (65-110); Potassium 4.1 mmol/L (3.4-5.0); Sodium 135 mmol/L (137-145)
[2023-02-27 08:03] VITALS: BP 140/86; PULSE 88; RESP 16; TEMP 36.5; O2SAT 98
[2023-02-27 08:22] LABS: Glucose Point of Care 225 mg/dl (65-105)
[2023-02-27] MEDS: INSULIN ASPART (*BKC) 100 UNITS/ML SUB-Q ×2 (08:32→12:09)
[2023-02-27] MEDS: ENOXAPARIN 40 MG/0.4 ML SYRINGE SUB-Q (08:33)
[2023-02-27] MEDS: ATORVASTATIN 40 MG TABLET PO (08:33)
[2023-02-27] MEDS: lisinopriL 2.5 MG TABLET PO (08:34)
[2023-02-27] MEDS: FAMOTIDINE 20 MG TABLET PO (08:35)
[2023-02-27] MEDS: polyethylene glycoL 3350 17 GM POWD.PACK PO (08:38)
[2023-02-27] MEDS: SENNA/DOCUSATE SODIUM TABLET 2 TAB PO (08:38)
--- NOTE | 2023-02-27 09:48 | WPDANESPN ---
Anes - Prog Note Post-Op Date/Time: 02/27/23 09:48 Cardiovascular status: normal Respiratory status: normal Airway patency: baseline Mental status: baseline Post-Op hydration status: normal Vital Signs: Last Vital Signs Temp 36.5 C 02/27/23 08:03 Pulse 88 02/27/23 08:03 Resp 16 02/27/23 08:03 BP 140/86 02/27/23 08:03 Pulse Ox 98 02/27/23 08:03 O2 Del Method Room Air 02/27/23 08:50 O2 Flow Rate 10 02/26/23 13:22 Pain Score (VAS): 12/10 I/O: Intake & Output 02/26/23 02/27/23 02/27/23 23:59 07:59 15:59 Intake Total 790 400 120 Balance 790 400 120 Laboratory Tests 02/27/23 05:45 02/27/23 05:45 02/26/23 02/26/23 02/26/23 10:44 13:32 16:48 WBC RBC Hgb Hct MCV MCH MCHC RDW Plt Count MPV Sodium Potassium Chloride Carbon Dioxide Anion Gap BUN Creatinine Estim Creat Clear Calc Estimated GFR Glucose POC Capillary Glucose 221 H 210 H 315 H Calcium Vancomycin Trough 02/26/23 02/26/23 02/27/23 19:46 20:21 05:45 WBC 8.9 RBC 4.07 L Hgb 12.1 L Hct 35.8 L MCV 88.0 MCH 29.7 MCHC 33.8 RDW 12.3 Plt Count 258 MPV 9.9 Sodium Potassium Chloride Carbon Dioxide Anion Gap BUN Creatinine Estim Creat Clear Calc Estimated GFR Glucose POC Capillary Glucose 328 H Calcium Vancomycin Trough 10.2 02/27/23 02/27/23 05:45 08:15 WBC RBC Hgb Hct MCV MCH MCHC RDW Plt Count MPV Sodium 135 L Potassium 4.1 Chloride 102 Carbon Dioxide 25 Anion Gap 8 BUN 21 H Creatinine 1.30 Estim Creat Clear Calc 72 Estimated GFR 59 Glucose 246 H POC Capillary Glucose 225 H Calcium 8.4 Vancomycin Trough Microbiology 02/26/23 13:00 Toe Left Fifth Gram Stain - Final 02/26/23 13:00 Toe Left Fifth Anaerobic Culture - Preliminary 02/25/23 08:17 Blood Blood Culture - Preliminary 02/25/23 08:11 Blood Blood Culture - Preliminary Post-procedural complaints: none Patient Feedback: Patient satisfied with anesthetic care.
[2023-02-27] MEDS: DOXYCYCLINE HYCLATE 100 MG TABLET PO (11:11)
[2023-02-27] MEDS: levoFLOXacin 750 MG TABLET PO (11:11)
[2023-02-27] MEDS: ARTIFICIAL TEARS OPHTH SOLN 15 ML BOTTLE 1 DROP EACH EYE (11:11)
[2023-02-27 11:55] LABS: Glucose Point of Care 264 mg/dl (65-105)
[2023-02-27 12:03] VITALS: BP 131/70; PULSE 80; RESP 18; TEMP 36.8; O2SAT 100
--- NOTE | 2023-02-27 13:27 | PM.PNORT ---
Progress Note: A&P Assessment and Plan (1) Osteomyelitis of fifth toe of left foot: Code(s): M86.9 - Osteomyelitis, unspecified Status: Acute Assessment and Plan: POD #1: Left 5th Ray Amputation and debridement of DFU Transition to oral antibiotics. Levaquin/Doxycycline x14 days. Will follow cultures/pathology as an outpatient and change doses accordingly if necessary. Continue daily dressing changes. Add silver gel to base of hallux. instructed on dressing changes. Post op shoe for ambulation. Walk on heel. Follow up in 3 weeks for suture removal in the outpatient orthopedic clinic. (2) Insulin dependent diabetes mellitus: Status: Acute Assessment and Plan: Discussed importance of proper nutrition, diabetic diet and medication compliance for optimal healing. Reviewed signs and symptoms of infection including fever, chills, night sweats, nausea, vomiting, diarrhea, changes to the wound bed or purulent drainage to report to the ED immediately. Patient verbalized understanding. (3) Hypercholesterolemia: Code(s): E78.00 - Pure hypercholesterolemia, unspecified Status: Acute (4) Diabetic toe ulcer: Code(s): E11.621 - Type 2 diabetes mellitus with foot ulcer; L97.509 - Non-pressure chronic ulcer of other part of unspecified foot with unspecified severity Status: Acute (5) Elevated blood pressure reading: Code(s): R03.0 - Elevated blood-pressure reading, without diagnosis of hypertension Status: Acute Subjective Subjective Date/Time Seen: 02/27/23 13:27 Post Op day: 1 Interval history: POD #1: Left 5th ray amputation, hallux DFU debridement Patient doing well. Denies pain. No new concerns. Hopeful for discharge home today. Review of Systems Constitutional: Constitutional: Reports no additional constitutional complaints, Denies chills, Denies fatigue, Denies fever(s), Denies headache(s) and Denies weakness Eyes: Eyes: Denies change in vision ENT: Reports Normal hearing present and Denies headache(s) Cardiovascular: Cardiovascular: Denies chest pain and Denies dyspnea Respiratory: Respiratory: Denies cough, Denies dyspnea and Denies wheezing Gastrointestinal: Gastrointestinal: Denies constipation, Denies diarrhea, Denies nausea and Denies vomiting Genitourinary: Genitourinary: Denies hematuria, Denies dysuria and Denies urinary urgency Musculoskeletal: Musculoskeletal: Reports as per HPI, Denies numbness and Denies tingling Integumentary/Breasts: Skin/Breast: Reports as per HPI Neurologic: Reports as per HPI, Reports Normal hearing present, Denies headache(s), Denies numbness, Denies tingling and Denies weakness Psychiatric: Psychiatric: Reports no additional psychiatric complaints Endocrine: Endocrine: Reports no additional endocrine complaints and Denies fatigue Hematologic/Lymphatic: Hematologic/Lymphatic: Reports no additional hematologic/lymphatic complaints Allergic/Immunologic: Allergic/Immunologic: Reports no additional allergic/immunologic complaints and Denies wheezing Exam Const: General: comfortable and no acute distress HENMT: Mouth: Yes moist mucous membranes Eyes: General: appearance normal, both eyes and all related structures Neck: Neck: supple and no JVD Resp: Effort & Inspection: normal respiratory effort Cardio: Rate: regular rate Rhythm: regular rhythm GI: Inspection: non-distended GI Palp: Yes Soft to palpation and No Tenderness to palpation present (GI) Neuro: General: gait normal Cognition (Neuro): normal cognition Speech: normal speech Extrem: Right lower extremity: foot ( 2nd toe amputation, incision well healed.) Details: normal capillary refill, normal to inspection, no edema, vascular exam Details: dorsalis pedis pulse present, motor-sensory exam Details: light-touch abnormal and other ( Claw toe noted, 3rd ray. Callus formation. No open wounds.); no unusual warmth Left lower extremity: f
--- NOTE | 2023-02-27 14:15 | PM.DS ---
DS: Admitting Diagnosis Discharge Date 02/27/2023 Admitting Diagnosis Left 5th toe blister. DS: Discharge Diagnosis Discharge Diagnosis (1) Osteomyelitis of fifth toe of left foot: Code(s): M86.9 - Osteomyelitis, unspecified Status: Acute (2) Insulin dependent diabetes mellitus: Status: Acute (3) Hypercholesterolemia: Code(s): E78.00 - Pure hypercholesterolemia, unspecified Status: Acute (4) Diabetic toe ulcer: Code(s): E11.621 - Type 2 diabetes mellitus with foot ulcer; L97.509 - Non-pressure chronic ulcer of other part of unspecified foot with unspecified severity Status: Acute (5) Elevated blood pressure reading: Code(s): R03.0 - Elevated blood-pressure reading, without diagnosis of hypertension Status: Acute Plan The patient presented to the emergency department for evaluation of a worsening diabetic foot ulcer on the left 5th toe as per HPI. There is evidence of osteomyelitis on radiographs and the wound does probe to bone. He will be NPO after midnight for left 5th ray amputation tomorrow per Dr. Buenrostro. Analgesics available as needed. Insulin pump will be removed tonight as he is NPO and that can be resumed following surgery. Initiate sliding scale insulin in the interim. He also has an ulcerated ulcer on the left hallux and local wound care has been initiated. Patient reports that he has gotten his diabetes under pretty good control in the last 5 months or so and his A1c today 6.8%. We discussed the importance of continuing to keep his glucose tightly controlled. Blood pressures were reviewed and they have been running in the 140 systolic. He has no known history of hypertension. For now will continue to monitor closely; he is on 2.5 mg of lisinopril for renal protection in the setting of diabetes. There is certainly room to increase that dose if his blood pressures continue to trend high. The rest of his home medications will be reviewed and resumed as appropriate. 02/26/2023 interval history: 48-year-old male with history of uncontrolled diabetes with hemoglobin A1c of 13.5 presented with a left 5th toe wound, x-ray of the toe showed Osteomyelitis of the fifth digit phalanges, patient was seen by orthopedic surgeon recommended amputation and patient agreed, today patient had amputation of the left 5th toe, will continue to monitor patient be seen by orthopedic surgeon tomorrow and further recommendation to follow. DS: Summary Hospital Course Reason for hospitalization: Left 5th toe blister. Narrative: This is a very pleasant 48-year-old male with insulin-dependent diabetes and hyperlipidemia who presented to the emergency department from home for evaluation of a left 5th toe blister.? Patient provides the following history. Historically his diabetes was not very well controlled with a reported hemoglobin A1c of 13.5% in August 2022. Since that time he has really changed his lifestyle and his most recent A1c was 7%. He has an insulin pump, has been more mindful of his diet, and he has been working out at the gym. He does not have any significant symptoms however was told that he has evidence of mild neuropathy on exam. In any event about 2 weeks ago he noticed a blister on the lateral side of the left 5th toe. He recently started a new job and is now wearing steel-toed boots and he wonders if perhaps they are rubbing that area. About a week ago the blister ruptured and he has had some bloody drainage. He saw his primary doctor and was prescribed cephalexin and despite being compliant with the drug the area continues to worsen and today he noticed that the wound appeared darker and he came in for evaluation. X-rays are consistent with osteomyelitis and he is being admitted in this setting for IV antibiotics and consideration for amputation. At the time my evaluation he has no complaints. He denies fever, chills, sweats, nausea, and vomiting. Hospital Course: 48-year-old male with histor
== END 2023-02-27 15:00 | disposition home or self-care (01) ==
LOC: ANHED 11:35 → ANH3MEDSUR 12:50
PROVIDERS: Orthopaedic Surgery; Physician Assistant; Admitting Provider Internal Medicine; Emergency Provider Emergency Medicine; PCP Family Medicine; Visit Provider Family Medicine
PROC: (CPT 11043; principal; 2023-02-26 12:30)
DX: M86.172 Other acute osteomyelitis, left ankle and foot (principal); E11.69 Type 2 diabetes mellitus with other specified complication; E11.621 Type 2 diabetes mellitus with foot ulcer; L97.529 Non-pressure chronic ulcer of other part of left foot with unspecified severity; B96.5 Pseudomonas (aeruginosa) (mallei) (pseudomallei) as the cause of diseases classified elsewhere; R03.0 Elevated blood-pressure reading, without diagnosis of hypertension; Z96.41 Presence of insulin pump (external) (internal); M20.5X2 Other deformities of toe(s) (acquired), left foot; E78.00 Pure hypercholesterolemia, unspecified; Z79.4 Long term (current) use of insulin; Z79.899 Other long term (current) drug therapy; Z83.3 Family history of diabetes mellitus
CPT/HCPCS: 11043; 28820; 36415; 73630; 73660; 80048; 80053; 80202; 82948; 83036; 83735; 85025; 85027; 87040; 87070; 87075; 87077; 87186; 87205; 88305; 88311; 96365; 96366; 96367; 97161; 97165; 99285; A9270; G0378; J0690; J1100; J1650; J1815; J1956; J2250; J2370; J2405; J2704; J3010; J3370; J7030; J7120

== ENCOUNTER 2023-06-13 07:51 | Outpatient (RCR) | payer OTHER, SELFPAY ==
--- NOTE | 2023-05-12 08:29 | PM.PNORT ---
Progress Note: A&P Assessment and Plan (1) Osteomyelitis of fifth toe of left foot: Code(s): M86.9 - Osteomyelitis, unspecified Status: Acute Assessment and Plan: Wound on the base of the left hallux measures 1.6x1.2x0.3cm, 100% red/pink wound bed. No signs of active infection. Recommended application of silver gel, jimena and transfer and then TCC for additional pressure off loading. TCC applied, tolerated well. Patient to follow up in 1 week for cast change. Reviewed work restriction recommendations. (2) Insulin dependent diabetes mellitus: Status: Acute Assessment and Plan: Discussed importance of proper nutrition, diabetic diet and medication compliance for optimal healing. Reviewed signs and symptoms of infection including fever, chills, night sweats, nausea, vomiting, diarrhea, changes to the wound bed or purulent drainage to report to the ED immediately. Patient verbalized understanding. (3) Hypercholesterolemia: Code(s): E78.00 - Pure hypercholesterolemia, unspecified Status: Acute (4) Diabetic toe ulcer: Qualifiers: Diabetes mellitus type: type 1 Laterality: left Non-pressure ulcer stage: limited to breakdown of skin Qualified Code(s): E10.621 - Type 1 diabetes mellitus with foot ulcer; L97.521 - Non-pressure chronic ulcer of other part of left foot limited to breakdown of skin Code(s): E11.621 - Type 2 diabetes mellitus with foot ulcer; L97.509 - Non-pressure chronic ulcer of other part of unspecified foot with unspecified severity Status: Acute (5) Elevated blood pressure reading: Code(s): R03.0 - Elevated blood-pressure reading, without diagnosis of hypertension Status: Acute Subjective Subjective Date/Time Seen: 05/12/23 08:29 Interval history: 48 year old male presents to the [facility] wound clinic for chronic left hallux ulcer. He is 10 weeks, 5 days s/p left 5th toe amputation. His left hallux ulcer was chronic preoperatively. It has continued to be open without signs of active infection. He has failed to improve with silver gel and foam daily. Recommended patient be seen in the [facility] wound clinic for TCC application for additional pressure offloading. He presents today for application of TCC. He denies fever, chills, night sweats, nausea, vomiting or diarrhea. Review of Systems Review of Systems: All systems reviewed & are unremarkable except as noted in HPI and below Exam Const: General: comfortable and no acute distress HENMT: Mouth: Yes moist mucous membranes Eyes: General: appearance normal, both eyes and all related structures Neck: Neck: supple and no JVD Resp: Effort & Inspection: normal respiratory effort Cardio: Rate: regular rate Rhythm: regular rhythm GI: Inspection: non-distended GI Palp: Yes Soft to palpation and No Tenderness to palpation present (GI) Neuro: General: gait normal Cognition (Neuro): normal cognition Speech: normal speech Extrem: Right lower extremity: foot ( 2nd toe amputation, incision well healed.) Details: normal capillary refill, normal to inspection, no edema, vascular exam Details: dorsalis pedis pulse present, motor-sensory exam Details: light-touch abnormal and other ( Claw toe noted, 3rd ray. Callus formation. No open wounds.); no unusual warmth Left lower extremity: foot Details: warmth Location: of the lateral foot, no edema, vascular exam Details: dorsalis pedis pulse present, motor-sensory exam two point discrimination abnormal and light-touch abnormal and other ( See below) Other: Ulcer at the base of the hallux of the left foot measures 1.5 x 1.5 x 0.3 cm. 100% red/ pink wound bed. No malodor. Scant sanguinous drainage. No evidence of acute infection. 5th Ray amputation with incision well approximated. 3rd distal toe with scant sanguinous drainage. No signs of active infection. Psych: Mental Status: mental status grossly normal Affect: normal affect AMG Follow-up
[2023-05-12 15:21] VITALS: BMI 31.6
--- NOTE | 2023-05-23 09:03 | PM.PNORT ---
Progress Note: A&P Assessment and Plan (1) Osteomyelitis of fifth toe of left foot: Code(s): M86.9 - Osteomyelitis, unspecified <PRIMO LopezP - Last Filed: 05/23/23 09:08> Status: Acute <PRIMO LopezP - Last Filed: 05/23/23 09:08> Assessment and Plan: Cast removed. No signs of rubbing or pressure related to cast application. Wound on the base of the left hallux measures 1.0x0.9x0.1 cm, 100% red/pink wound bed. No signs of active infection. Recommended repeat application of silver gel, jimena and transfer and then TCC for continued pressure off loading. TCC applied, tolerated well. Patient to follow up in 1 week for cast change with [facility] wound clinic nurses. Reviewed work restriction recommendations. <Jeanette Baugh [employer] - Last Filed: 05/23/23 09:08> (2) Insulin dependent diabetes mellitus: Status: Acute <Jeanette Baugh, [employer] - Last Filed: 05/23/23 09:08> Assessment and Plan: Discussed importance of proper nutrition, diabetic diet and medication compliance for optimal healing. Reviewed signs and symptoms of infection including fever, chills, night sweats, nausea, vomiting, diarrhea, changes to the wound bed or purulent drainage to report to the ED immediately. Patient verbalized understanding. <Jeanette Baugh, [employer] - Last Filed: 05/23/23 09:08> (3) Hypercholesterolemia: Code(s): E78.00 - Pure hypercholesterolemia, unspecified <Jeanette Baugh, [employer] - Last Filed: 05/23/23 09:08> Status: Acute <Jeanette Baugh, [employer] - Last Filed: 05/23/23 09:08> (4) Diabetic toe ulcer: Qualifiers: Diabetes mellitus type: type 1 Laterality: left Non-pressure ulcer stage: limited to breakdown of skin Qualified Code(s): E10.621 - Type 1 diabetes mellitus with foot ulcer; L97.521 - Non-pressure chronic ulcer of other part of left foot limited to breakdown of skin <Jeanette Baugh, [employer] - Last Filed: 05/23/23 09:08> Code(s): E11.621 - Type 2 diabetes mellitus with foot ulcer; L97.509 - Non-pressure chronic ulcer of other part of unspecified foot with unspecified severity <HELADIO Lopez - Last Filed: 05/23/23 09:08> Status: Acute <HELADIO Lopez - Last Filed: 05/23/23 09:08> Assessment and Plan: Pt seen and examined with HELADIO Baugh. Present for recast <Shiraz Buenrostro MD - Last Filed: 05/23/23 12:28> (5) Elevated blood pressure reading: Code(s): R03.0 - Elevated blood-pressure reading, without diagnosis of hypertension <HELADIO Lopez - Last Filed: 05/23/23 09:08> Status: Acute <HELADIO Lopez - Last Filed: 05/23/23 09:08> Subjective Subjective Date/Time Seen: 05/23/23 09:03 <HELADIO Lopez - Last Filed: 05/23/23 09:08> Interval history: 48 year old male presents to the [facility] wound clinic for chronic left hallux ulcer. He is 12 weeks, 5 days s/p left 5th toe amputation. His left hallux ulcer was chronic preoperatively. It has continued to be open without signs of active infection. He has failed to improve with silver gel and foam daily. He began TCC in the [facility] wound clinic 2 weeks ago. He had a cast change on Friday but was feeling pressure/tightness from the cast which prompted an early return to the clinic for reevaluation. <HELADIO Lopez - Last Filed: 05/23/23 09:08> Review of Systems Review of Systems: All systems reviewed & are unremarkable except as noted in HPI and below <HELADIO Lopez - Last Filed: 05/23/23 09:08> Exam Const: General: comfortable and no acute distress <HELADIO Lopez - Last Filed: 05/23/23 09:08> HENMT: Mouth: Yes moist mucous membranes <HELADIO Lopez - Last Filed: 05/23/23 09:08> Eyes: General: appearance normal, both eyes and all related structures <HELADIO Lopez - Last Filed: 05/23/23 09:08> Neck: Neck: supple and no JVD <HELADIO Lopez - Last Filed: 05/23/23 09:08> Resp: Effort & Inspection:
--- NOTE | 2023-06-13 08:52 | PM.IMHP ---
H&P: HPI History of Present Illness Date/Time: 06/13/23 08:52 Chief Complaint: Left hallux ulcer Narrative: returns for evaluation to the [facility] for left hallux diabetic ulcer. Has been in a total contact cast. No interim complaints. Review of Systems Constitutional: Constitutional: Denies fever(s) Eyes: Eyes: Denies blurry vision ENT: Reports Normal hearing present Cardiovascular: Cardiovascular: Denies chest pain and Denies dyspnea Respiratory: Respiratory: Denies dyspnea and Denies wheezing Gastrointestinal: Gastrointestinal: Denies abdominal pain Genitourinary: Genitourinary: Denies urinary urgency Musculoskeletal: Musculoskeletal: Reports as per HPI and Denies numbness Integumentary/Breasts: Skin/Breast: Denies changing lesions and Denies sores Neurologic: Reports Normal hearing present, Denies behavioral changes, Denies confusion, Denies numbness and Denies convulsions Psychiatric: Psychiatric: Denies behavioral changes, Denies confusion and Denies hallucinations Endocrine: Endocrine: Denies heat intolerance Hematologic/Lymphatic: Hematologic/Lymphatic: Denies easy bleeding Allergic/Immunologic: Allergic/Immunologic: Denies wheezing PMFSH Past Medical History Medical History Bloating Clawtoe, acquired Diabetes Exocrine pancreatic insufficiency Gastroparesis Hypercholesterolemia Hyperlipidemia Insulin dependent diabetes mellitus Irritable bowel syndrome with diarrhea Nausea Peripheral autonomic neuropathy due to diabetes mellitus Small intestinal bacterial overgrowth (SIBO) Surgical History Surgical History History of partial ray amputation of second toe of right foot Family History Family History Mother Diabetes mellitus Hypertension Father Diabetes mellitus Glaucoma Heart disease Social History Social History Social History: Surrogate medical decision maker: Vanda Guzman, . Code status: Full code. Smoking status: Never smoker Alcohol intake: never Substance use: never Substance use type: does not use Lack of Transportation: No Lack of Food: Never True Current Housing: I Have Housing Concerned About Future Housing: No Difficulty Paying Gas/Electric Bills: No Difficulty Paying for Meds: No Currently Unemployed: No Education: High School Diploma/GED Difficulty w/ Childcare or Family Care: No Living arrangements: with family Additional living arrangements comments: Lives in [place]. Additional occupation/education comments: Warehouse. Spiritual care concerns: No Meds Home Medications and Allergies Home Medications Medication Instructions Recorded Confirmed Type aspirin 81 mg tablet,delayed 81 mg PO DAILY 08/28/20 03/19/23 History release insulin lispro 100 unit/mL 35 unit subcut DAILY 08/28/20 03/19/23 History subcutaneous pen (Humalog KwikPen (U-100) Insulin) benzonatate 200 mg capsule 200 mg PO TID PRN cough #20 caps 02/10/22 03/19/23 Rx wimnuo-ozhqmivw-wagxkzo 2 cap PO TID 1 month #180 caps 06/13/22 03/19/23 Rx 25,000-79,000-105,000 unit capsule,delayed rel (Zenpep) atorvastatin 20 mg tablet 40 mg PO DAILY 09/23/22 03/19/23 History amitriptyline 25 mg tablet See Rx Instructions .Route 11/15/22 03/19/23 Rx .COMPLEX #30 tabs blood-glucose meter,continuous 02/25/23 03/19/23 History (Dexcom G6 Financial Analysis Manager) blood-glucose sensor (Dexcom G6 02/25/23 03/19/23 History Sensor device) blood-glucose transmitter (Dexcom 02/25/23 03/19/23 History G6 Transmitter device) insulin lispro-aabc 100 unit/mL See Rx Instructions .Route .COMPLEX 02/25/23 03/19/23 History subcutaneous solution (Lyumjev U-100 Insulin) insulin pump cart,cont inf,B
== END 2023-08-10 23:59 | disposition home or self-care (01) ==
LOC: ANHWOC 07:51
PROVIDERS: PCP Family Medicine; Visit Provider Orthopaedic Surgery
DX: E11.43 Type 2 diabetes mellitus with diabetic autonomic (poly)neuropathy (principal); E11.621 Type 2 diabetes mellitus with foot ulcer; L97.509 Non-pressure chronic ulcer of other part of unspecified foot with unspecified severity
CPT/HCPCS: 11042; 29445

== ENCOUNTER 2023-07-14 09:09 | Inpatient (IN) | payer OTHER, SELFPAY ==
[2023-07-14] VITALS (16 sets, daily range): BP systolic 119–158; BP diastolic 45–74; PULSE 75–86; RESP 16–20; TEMP 36.2–37.1; O2SAT 97–100; BMI 31.7
--- NOTE | ~2023-07-14 | XR_ITS ---
EXAMINATION: XR chest 2V DATE: 07/14/2023 10:10 INDICATION: Cough. TECHNIQUE: Frontal and lateral views of the chest were obtained. COMPARISON: Chest 2 views 11/05/2016 FINDINGS: There is no pneumonia, pleural effusion, or pneumothorax. The heart size is normal. IMPRESSION: 1. No acute cardiopulmonary disease. Reviewed, dictated and finalized at location A.
--- NOTE | ~2023-07-14 | MR_ITS ---
EXAMINATION: MR foot RT wo con DATE: 07/15/2023 12:47 INDICATION: Diabetic ulcer at the right great toe. Assess for osteomyelitis. TECHNIQUE: Magnetic resonance imaging (MRI) of the right fore/mid foot was performed without intraven ous contrast. Sequences included axial, sagittal and coronal T1-weighted FSE, sagittal fluid sensitiv e FSE STIR, axial PD-weighted FS FSE, axial PD-weighted FS FSE, axial T1-weighted FS FSE and axial, s agittal and coronal T2-weighted FS FSE . COMPARISON: Right foot radiographs dated 07/14/2023 and MRI dated 11/04/2016 FINDINGS: Chronic amputation of the second toe. Moderate osteoarthritis at the third metatarsophalangeal joint where there is widening and increased cupping of the base of the proximal phalanx which could represe nt either an old fracture deformity or secondary remodeling related to chronic septic arthritis and o steomyelitis. Additional mild to moderate osteoarthritis at the first metatarsophalangeal joint with mild subarticular cystlike and edema-like signal changes at the head of the first metatarsal along it s articulation with the fibular sesamoid. Again seen is a transverse fracture across the base of the tuft of the right first distal phalanx. Th ere is prominent low signal intensity extending across the fracture line which appears to extend towa rds a sinus tract leading to ulceration at the plantar aspect of the distal tip of the great toe. The re is associated marrow edema in the first distal phalanx but no definitive loss of T1 marrow fat sig nal proximal to the fracture plane. No definitive T1 fat signal seen in the distal fragment however t his could be due to the small size of the fragment in this remains equivocal for osteomyelitis. There is diffuse increased signal throughout the intrinsic musculature of the foot related to diabetic paola ropathy. The visualized portions of the flexor and extensor tendons are normal. The Lisfranc ligament complex along with the collateral ligament complex at the remaining tarsal metatarsal and interphala ngeal joints are normal. Physiologic amount fluid in the joint space. No abscess, joint effusions or other abnormal fluid collections. IMPRESSION: 1. Gas along nonunited transverse fracture plane across the base of the tuft of the right first dista l phalanx which appears to communicate via a sinus tract with a plantar skin ulceration which is conc erning for infection and osteomyelitis. Nonspecific marrow signal changes with increased fluid signal proximal to the fracture plane and absent T1 signal in the fragment distal to the fracture plane. Th is would be consistent with osteomyelitis but could also be due to reactive edema at the former and d ue to the small size of the distal fragment for the latter. Reviewed, dictated and finalized at location A. IMPRESSION: 1. Gas along nonunited transverse fracture plane across the base of the tuft of the right first distal phalanx which appears to communicate via a sinus tract with a plantar skin ulceration which is concerning for infection and osteomyeli tis. Nonspecific marrow signal changes with increased fluid signal proximal to the fracture plane and absent T1 signal in the fragment distal to the fracture plane. This would be consistent with osteomyelitis but could also be due to dejuan ctive edema at the former and due to the small size of the distal fragment for the latter.
--- NOTE | ~2023-07-14 | XR_ITS ---
EXAMINATION: XR foot RT min 3V DATE: 07/14/2023 10:10 INDICATION: Right great toe ulcer. TECHNIQUE: 4 views of right foot were obtained. COMPARISON: Right foot radiographs 11/22/2016 FINDINGS: There is an ulcer of the great toe. There is a transverse fracture of tuft of first distal phalanx. There is amputation at second metatarsophalangeal joint. There are erosions at third metatar sophalangeal joint. There is mild osteoarthritis of first metatarsophalangeal joint and some of the i nterphalangeal joints and midfoot joints. IMPRESSION: 1. Transverse fracture of tuft of first distal phalanx. 2. Chronic appearing erosions of third metatarsophalangeal joint, which may be chronic septic arthrit is. 3. Mild polyarticular osteoarthritis. Reviewed, dictated and finalized at location A. IMPRESSION: 1. Transverse fracture of tuft of first distal phalanx. 2. Chronic appearing erosions of third metatarsophalangeal joint, which may be chronic septic arthritis. 3. Mild polyarticular osteoarthritis.
[2023-07-14 09:55] LABS: Basophils Percent Auto 0.1 % (0.2-1.2); Hematocrit 34.1 % (42.0-52.0); Hemoglobin 11.2 g/dL (14.0-18.0); Immature Granulocyte Absolute 0.08 K/mm3 (0.00-0.031); Immature Granulocyte Percent A 0.6 % (0-0.5); Lymphocytes Absolute Auto 0.99 K/mm3 (0.9-3.2); Lymphocytes Percent Auto 7.3 % (18.3-44.2); Mean Corpuscular HGB Conc 32.8 g/dl (32-36); Mean Corpuscular Volume 91.4 fl (80-100); Mean Platelet Volume 10.2 fl (7.4-10.4); Monocytes Absolute Auto 0.6 K/mm3 (0.1-0.6); Monocytes Percent Auto 4.7 % (2.6-8.5); Neutrophils Absolute Auto 11.8 K/mm3 (1.3-6.7); Neutrophils Percent Auto 87.3 % (45.5-73.1); Platelet Count Result 168 k/mm3 (150-375); Red Blood Count 3.73 M/mm3 (4.6-6.20); Red Cell Distribution Width 12.9 % (11.5-14.5); White Blood Count 13.5 K/mm3 (4.5-10.0)
--- NOTE | 2023-07-14 10:02 | ED.GENADULT ---
HPI - General Adult General Chief complaint: Wound/Laceration <Michael Azul PA-C - Last Filed: 07/14/23 18:03> Stated complaint: Right great toe wound - diabetic <Michael Azul PA-C - Last Filed: 07/14/23 18:03> Time Seen by Provider: 07/14/23 09:16 <Michael Azul PA-C - Last Filed: 07/14/23 18:03> Source: patient <DARNELL Brown Last Filed: 07/14/23 18:03> Mode of arrival: ambulatory <DARNELL Brown Last Filed: 07/14/23 18:03> Limitations: no limitations <Michael Azul PA-C - Last Filed: 07/14/23 18:03> History of Present Illness HPI narrative: This is a 48-year-old male with PMH of insulin-dependent diabetes who presents to the ED with chief complaint of right great toe wound and pain for the past 2 weeks. He reports that he was seen by his specialist, Dr. Buenrostro 2 weeks ago at the onset of the ulcer but it was not overtly infected at that time. He states that since then he has had a little bit of worsening pain in the area and swelling. Reports redness to the toe. Denies drainage. Reports the ulcer is widening and becoming darker centrally. Reports intermittent subjective fevers but also feels he has had a recent cough lately. He states he may have picked up a virus as well. Denies nausea, vomiting, abdominal pain, chest pain, shortness of breath. <Michael Azul PA-C - Last Filed: 07/14/23 18:03> Related Data Home medications: Home Medications Medication Instructions Recorded Confirmed aspirin 81 mg tablet,delayed 81 mg PO DAILY 08/28/20 07/14/23 release atorvastatin 20 mg tablet 40 mg PO HS 09/23/22 07/14/23 blood-glucose meter,continuous 02/25/23 07/14/23 (Dexcom G6 Mortgage Loan Reviewer) blood-glucose sensor (Dexcom G6 02/25/23 07/14/23 Sensor device) blood-glucose transmitter (Dexcom 02/25/23 07/14/23 G6 Transmitter device) insulin lispro-aabc 100 unit/mL See Rx Instructions .Route .COMPLEX 02/25/23 07/14/23 subcutaneous solution (Lyumjev U-100 Insulin) insulin pump cart,cont inf,BT 02/25/23 07/14/23 (Omnipod Dash Pods (Gen 4) subcutaneous cartridge) lisinopril 2.5 mg tablet 10 mg PO DAILY 02/25/23 07/14/23 ferrous sulfate 325 mg (65 mg 325 mg PO DAILY 07/14/23 07/14/23 iron) tablet (FeroSul) rifaximin 550 mg tablet (Xifaxan) 550 mg PO BID PRN Abdominal 07/14/23 07/14/23 Discomfort <Michael Azul PA-C - Last Filed: 07/14/23 18:03> Allergies/adverse reactions: Allergies Allergy/AdvReac Type Severity Reaction Status Date / Time canagliflozin [From Invokana] AdvReac Severe Other Verified 07/14/23 12:29 <Michael Azul PA-C - Last Filed: 07/14/23 18:03> Review of Systems Review of Systems: All systems as dictated in HPI <Michael Azul PA-C - Last Filed: 07/14/23 18:03> [facility] Past Medical History Medical History: Medical History (Updated 07/14/23 @ 13:23 by Katharine Steinberg PA-C) Diabetes Exocrine pancreatic insufficiency Gastroparesis Hypercholesterolemia Hyperlipidemia Hypertension Insulin dependent diabetes mellitus Irritable bowel syndrome with diarrhea Peripheral autonomic neuropathy due to diabetes mellitus Small intestinal bacterial overgrowth (SIBO) <Michael Azul PA-C - Last Filed: 07/14/23 18:03> Surgical History Surgical History: Surgical History History of partial ray amputation of second toe of right foot <Michael Azul PA-C - Last Filed: 07/14/23 18:03> Family History Family History: Family History Mother Diabetes mellitus Hypertension Father Diabetes mellitus Heart disease Glaucoma Grandparent Diabetes mellitus Cancer <Michael Azul PA-C - Last Filed: 07/14/23 18:03> Social History Social History: Social History Social History: Surrogate medical deci
[2023-07-14 10:15] LABS: Alanine Aminotransferase 26 U/L (6-50); Albumin Level 4.1 g/dL (3.5-5.1); Alkaline Phosphatase 91 U/L (38-126); Anion Gap 9 mmol/L (8-16); Aspartate Amino Transferase 32 U/L (17-59); Bilirubin,Total 0.7 mg/dL (0.2-1.3); Blood Urea Nitrogen 39 mg/dL (9-20); Calcium 8.3 mg/dL (8.4-10.2); Carbon Dioxide 25 mmol/L (22-30); Chloride 103 mmol/L (98-107); Estimated CRCL calculation 63 ml/min; Estimated Glomerular Filt Rate 50; Glucose 249 mg/dL (65-110); Potassium 4.4 mmol/L (3.4-5.0); Sodium 137 mmol/L (137-145)
[2023-07-14 10:20] LABS: CRP 15.9 mg/dL (<1.0)
[2023-07-14 10:30] LABS: Influenza A QL RT-PCR Negative (Negative); Influenza B QL RT-PCR Negative (Negative); RSV RNA, RT-PCR Negative (Negative); SARS-CoV-2 RNA PCR Positive (Negative)
[2023-07-14 10:36] LABS: Appearance Urine Clear (Clear); Bacteria Urine None Seen /hpf; Bilirubin Urine Negative (Negative); Blood Urine 1+ (Negative); Color Urine Yellow (Yellow); Glucose Urine UA 2+ mg/dL (Negative); Ketones Urine Negative (Negative); Leukocyte Esterase Ur Negative LEU/UL (Negative); Nitrate Urine Negative (Negative); Non Pathogenic Casts 0-2; Protein Urine 1+ mg/dL (Negative); RBC Urine 0-2 /hpf (0-2); Specific Grav Ur 1.017 (1.001-1.035); Squamous Epithelial Cell Urine None seen /hpf (Few); WBC Urine 0-5 /hpf; pH Urine 5.5 (5.0-9.0)
[2023-07-14] MEDS: SODIUM CHLORIDE 0.9% IV 1,000 ML 999 ML IV CONT (10:48)
[2023-07-14 11:01] LABS: Add Urine Microscopic? YES
[2023-07-14] MEDS: metroNIDAZOLE 500 MG/ISO 100ML 500 MG/100 ML BAG 100 MG IVPB (11:01)
[2023-07-14] MEDS: CEFEPIME 2 GM/NS 50 ML 2 GM/50 ML BAG IVPB (11:01)
--- NOTE | 2023-07-14 12:10 | ADMGEN ---
This patient, Justin Guzman, was admitted to 3 [facility] Surg Room 316-02. Patient/family oriented to hospital policies and general routines including ID bracelet, bed and alarms, visiting hours, pain management, procedures, bathroom and other care routines, personal items, smoking policy, room service/diet, and visiting hours. Information on how to activate the Rapid Response Team has been discussed. Patient/Family are encouraged to report perceived risks to care and to ask questions if they do not understand what they are told or what they should do.
[2023-07-14 12:34] LABS: Glucose Point of Care 220 mg/dl (65-105)
--- NOTE | 2023-07-14 13:08 | PM.IMHP ---
H&P: HPI History of Present Illness Date/Time: 07/14/23 13:00 Chief Complaint: Infected toe. Narrative: This is a very pleasant 48-year-old male with insulin-dependent diabetes and hyperlipidemia who presented to the emergency department from home for evaluation of an infected toe. Patient provides the following history. About 2 weeks ago he noticed a callus on the bottom of his right great toe and he has been mindful of the area. Last week it seem to be enlarging and the last 4 or 5 days he has developed pain, redness, and swelling about the toe. He endorses subjective fever and chills as well however he goes on to say that he has had cold symptoms since last Friday to include headache, body ache, sore throat, nausea, decreased appetite, and a cough. After speaking with Dr. Buenrostro's office today he decided to come in to the ER for evaluation as he was worried that the toe infection was getting worse. He has not been on any antibiotics as of yet. In the ED: He was afebrile on arrival with stable vital signs. Labs were significant for a mild leukocytosis with a WBC count of 13.5, stable anemia, BUN 39, creatinine 1.50 (up from baseline of 1.30), glucose 205, CRP 15.9. Chest x-ray showed no acute cardiopulmonary disease. Right foot x-ray showed an ulceration of the great toe, a transverse fracture of the tuft of the 1st distal phalanx, and chronic appearing erosions of the 3rd metatarsophalangeal joint which may be chronic septic arthritis. He tested positive for SARS-CoV-2 by PCR. He has since been started on cefepime, metronidazole, and vancomycin for cellulitis about a diabetic toe ulcer. Review of Systems Review of Systems: Twelve systems were reviewed. Some family members have had similar cold-like symptoms. No chest pain or shortness of breath. Appetite has been poor with nausea but no vomiting. Denies significant diarrhea. No dysuria. Glucose has been running a bit high since he has been sick. Except as documented, all other systems were reviewed and are negative. [facility] Past Medical History Medical History (Updated 07/14/23 @ 21:20 by Katharine Steinberg PA-C) Diabetes Exocrine pancreatic insufficiency Gastroparesis Hypercholesterolemia Hyperlipidemia Hypertension Insulin dependent diabetes mellitus Irritable bowel syndrome with diarrhea Peripheral autonomic neuropathy due to diabetes mellitus Small intestinal bacterial overgrowth (SIBO) Surgical History Surgical History History of partial ray amputation of second toe of right foot Family History Family History Mother Diabetes mellitus Hypertension Father Diabetes mellitus Heart disease Glaucoma Grandparent Diabetes mellitus Cancer Social History Social History Social History: Surrogate medical decision maker: Vanda Guzman, . Code status: Full code. Smoking status: Never smoker Alcohol intake: never Substance use: never Substance use type: does not use Lack of Transportation: No Lack of Food: Never True Current Housing: I Have Housing Concerned About Future Housing: No Difficulty Paying Gas/Electric Bills: No Difficulty Paying for Meds: No Currently Unemployed: No Education: High School Diploma/GED Difficulty w/ Childcare or Family Care: No Living arrangements: with family Additional living arrangements comments: Lives in [place]. Additional occupation/education comments: [employer]. Spiritual care concerns: No Meds Home Medications and Allergies Home Medications Medication Instructions Recorded Confirmed Type aspirin 81 mg tablet,delayed 81 mg PO DAILY 08/28/20 07/14/23 History release atorvastatin 20 mg tablet 40 mg PO HS 09/23/22 07/14/23 History blood-glucose meter,continuous 02/25/23 07/14/23 History (Dexcom G6 R
[2023-07-14] MEDS: LACTATED RINGERS 1,000 ML 100 ML IV CONT (14:37)
[2023-07-14] MEDS: VANCOMYCIN 1,250 MG/NS 250 ML 1,250 MG/250 ML BAG 166.67 MG IVPB ×2 (14:37→16:51)
[2023-07-14 16:37] LABS: Glucose Point of Care 291 mg/dl (65-105)
[2023-07-14] MEDS: INSULIN ASPART (*BKC) 100 UNITS/ML SUB-Q ×2 (16:52→21:14)
[2023-07-14] MEDS: INSULIN ASPART (*BKC) 100 UNITS/ML 10 UNITS SUB-Q (17:22)
[2023-07-14] MEDS: guaiFENesin/DEXTROMETHORPHAN 10 ML UDC PO (18:44)
[2023-07-14 21:12] LABS: Glucose Point of Care 205 mg/dl (65-105)
[2023-07-14] MEDS: INSULIN GLARGINE (*BKC) 100 UNITS/ML 29 UNITS SUB-Q (21:15)
[2023-07-14] MEDS: ATORVASTATIN 40 MG TABLET PO (21:16)
[2023-07-14] MEDS: HYDROcodone/acetaminophen (*CRX) 5-325 MG TABLET 1 TAB PO (22:04)
[2023-07-15] MEDS: guaiFENesin/DEXTROMETHORPHAN 10 ML UDC PO ×3 (01:38→20:23)
[2023-07-15] MEDS: HYDROcodone/acetaminophen (*CRX) 5-325 MG TABLET 1 TAB PO ×3 (04:31→17:01)
[2023-07-15] MEDS: LACTATED RINGERS 1,000 ML 100 ML IV CONT (04:32)
[2023-07-15 05:45] VITALS: BP 156/72; PULSE 73; RESP 12; TEMP 36.6; O2SAT 94
[2023-07-15 06:15] LABS: Hematocrit 30.9 % (42.0-52.0); Mean Corpuscular HGB Conc 32.4 g/dl (32-36); Mean Corpuscular Hemoglobin 30.1 pg (26-34); Mean Corpuscular Volume 93.1 fl (80-100); Mean Platelet Volume 10.2 fl (7.4-10.4); Platelet Count Result 157 k/mm3 (150-375); Red Blood Count 3.32 M/mm3 (4.6-6.20); Red Cell Distribution Width 12.8 % (11.5-14.5); White Blood Count 8.1 K/mm3 (4.5-10.0)
[2023-07-15 06:27] LABS: Anion Gap 6 mmol/L (8-16); Blood Urea Nitrogen 20 mg/dL (9-20); Calcium 7.8 mg/dL (8.4-10.2); Carbon Dioxide 27 mmol/L (22-30); Chloride 102 mmol/L (98-107); Estimated CRCL calculation 94 ml/min; Estimated Glomerular Filt Rate > 60; Glucose 242 mg/dL (65-110); Magnesium 1.9 mg/dL (1.6-2.3); Phosphorus 2.5 mg/dL (2.5-4.5); Potassium 4.3 mmol/L (3.4-5.0); Sodium 135 mmol/L (137-145)
[2023-07-15 08:00] VITALS: BP 145/75; PULSE 72; RESP 20; TEMP 37.2; O2SAT 97
[2023-07-15] MEDS: INSULIN ASPART (*BKC) 100 UNITS/ML SUB-Q ×2 (08:06→21:24)
[2023-07-15] MEDS: INSULIN ASPART (*BKC) 100 UNITS/ML 10 UNITS SUB-Q ×3 (08:06→16:56)
[2023-07-15] MEDS: ASPIRIN 81 MG ENTERIC TABLET PO (08:07)
[2023-07-15] MEDS: lisinopriL 10 MG TABLET PO (08:07)
[2023-07-15] MEDS: FERROUS SULFATE 325 MG TABLET DR BY MOUTH (08:07)
[2023-07-15] MEDS: ENOXAPARIN 40 MG/0.4 ML SYRINGE SUB-Q (08:08)
[2023-07-15 08:09] LABS: Glucose Point of Care 301 mg/dl (65-105)
--- NOTE | 2023-07-15 08:16 | PM.IMPN ---
Progress Note: A&P Assessment and Plan (1) Cellulitis of great toe of right foot: Code(s): L03.031 - Cellulitis of right toe Status: Acute Assessment and Plan: XR is not indicating osteomyelitis, incidental fracture of 1st distal phalanx. S/P 5th toe amputation of left foot on 01/2023. Pseudomonas was growing on culture at that time. -Broad spectrum coverage with vanco, cefe, flagyl -subjective reports of chills, body aches. Blood cultures ordered. -wound cultures pending -no leukocytosis at this time, WBC 10 -Orthopedics consulted and recommendations are appreciated -prn acetaminophen for fever greater than 101.4 -prn norco -MRI to r/o bone involvement (2) Diabetic toe ulcer: Qualifiers: Diabetes mellitus type: type 2 Laterality: left Non-pressure ulcer stage: limited to breakdown of skin Qualified Code(s): E11.621 - Type 2 diabetes mellitus with foot ulcer; L97.521 - Non-pressure chronic ulcer of other part of left foot limited to breakdown of skin Code(s): E11.621 - Type 2 diabetes mellitus with foot ulcer; L97.509 - Non-pressure chronic ulcer of other part of unspecified foot with unspecified severity Status: Acute Assessment and Plan: DM on insulin pump at home -Accu checks, hypoglycemia protocol ordered, SSI -Hemoglobin A1C 01/2023 6.5% -Broad spectrum IV abx -cultures pending (3) Renal insufficiency: Code(s): N28.9 - Disorder of kidney and ureter, unspecified Status: Acute Assessment and Plan: Cr 1.00, BUN 20, CrCl 94 -IVF (4) Hypertension: Code(s): I10 - Essential (primary) hypertension Status: Acute Assessment and Plan: Holding lisinopril for VIRGILIO -reviewed blood pressures -SBP 150-140's (5) Hypercholesterolemia: Code(s): E78.00 - Pure hypercholesterolemia, unspecified Status: Acute Assessment and Plan: Atorvastatin 40 mg at home -Lipid panel (6) Fracture of phalanx of right foot, closed: Code(s): S92.911A - Unspecified fracture of right toe(s), initial encounter for closed fracture Status: Acute Assessment and Plan: Incidental finding (7) COVID: Code(s): U07.1 - COVID-19 Status: Acute Assessment and Plan: Symptoms started Friday with cough, fever and chills, and headache. -Unclear if fever is related to COVID vs Toe infection. -Conservative treatment for cough with codeine prn -acetaminophen for H/a and fever Subjective Date/time seen: 07/15/23 08:16 Interval history: This is a very pleasant 48-year-old male with insulin-dependent diabetes and hyperlipidemia who presented to the emergency department from home for evaluation of an infected toe. Patient provides the following history. About 2 weeks ago he noticed a callus on the bottom of his right great toe and he has been mindful of the area. Last week it seem to be enlarging and the last 4 or 5 days he has developed pain, redness, and swelling about the toe. He endorses subjective fever and chills as well however he goes on to say that he has had cold symptoms since last Friday to include headache, body ache, sore throat, nausea, decreased appetite, and a cough. After speaking with Dr. Buenrostro's office today he decided to come in to the ER for evaluation as he was worried that the toe infection was getting worse. He has not been on any antibiotics as of yet. In the ED: He was afebrile on arrival with stable vital signs. Labs were significant for a mild leukocytosis with a WBC count of 13.5, stable anemia, BUN 39, creatinine 1.50 (up from baseline of 1.30), glucose 205, CRP 15.9. Chest x-ray showed no acute cardiopulmonary disease. Right foot x-ray showed an ulceration of the great toe, a transverse fracture of the tuft of the 1st distal phalanx, and chronic appearing erosions of the 3rd metatarsophalangeal joint which may be chronic septic arthritis. He tested positive for SARS-CoV-2 by PCR. He h
[2023-07-15] MEDS: CEFEPIME 2 GM/NS 50 ML 2 GM/50 ML BAG IVPB ×2 (09:11→22:11)
[2023-07-15] MEDS: metroNIDAZOLE 500 MG/ISO 100ML 500 MG/100 ML BAG 100 MG IVPB ×2 (09:54→16:57)
[2023-07-15] MEDS: guaiFENesin 12 HR 600 MG TABCR PO ×2 (11:44→21:18)
[2023-07-15 12:00] VITALS: BP 152/76; PULSE 76; RESP 18; TEMP 37.1; O2SAT 96
[2023-07-15 12:00] LABS: Glucose Point of Care 220 mg/dl (65-105)
[2023-07-15 13:05] LABS: Glucose Point of Care 188 mg/dl (65-105)
[2023-07-15] MEDS: PROMETHAZINE/CODEINE (*CRX) 5 ML SYRUP PO ×2 (13:07→17:02)
--- NOTE | 2023-07-15 13:38 | PM.CNOR ---
Assessment and Plan Assessment and plan (1) Diabetic infection of right foot: Code(s): E11.628 - Type 2 diabetes mellitus with other skin complications; L08.9 - Local infection of the skin and subcutaneous tissue, unspecified Status: Acute Assessment and Plan: Discussed right hallux ulcer with wound care team. Recommend Dakin's dressing to right hallux with 1-2 times per day dressing changes. Will allow Dakin's and IV antibiotics to work until medically cleared for surgery. Will evaluate patient when covid cleared. (2) Right hallux osteomyelitis: Code(s): M86.9 - Osteomyelitis, unspecified Status: Acute Assessment and Plan: patient well known to Orthopedic Service. Previous right 2nd toe osteomyelitis status post amputation. More recently in January of this year he had left 5th toe osteomyelitis and underwent amputation. A month ago he was seen for left plantar hallux ulcer and callus and of the right hallux. He has now gone on to develop an ulcer with osteomyelitis of right hallux. Radiographs show changes consistent with osteo. He was started on IV antibiotics. We are going to have the wound care team assess him and start dressing changes. He will need debridement versus amputation for the right hallux when medically stable. Will await treatment with covid before proceeding with surgery. (3) Peripheral autonomic neuropathy due to diabetes mellitus: Code(s): E11.43 - Type 2 diabetes mellitus with diabetic autonomic (poly)neuropathy Status: Acute (4) Diabetes mellitus type 2 in nonobese: Code(s): E11.9 - Type 2 diabetes mellitus without complications Status: Acute History of Present Illness HPI Consult date: 07/15/23 Requesting physician: Michael Azul PA-C Chief complaint: Diabetic Foot Infected Ulcer Narrative: 48-year-old gentleman known to the Orthopedic service for previous bilateral diabetic foot ulcers, osteomyelitis and amputations. Most recently was being followed for a plantar left hallux ulcer which was showing signs of slow improvement. This was 2 weeks ago. In the interim he developed worsening of the right plantar hallux with ulceration, drainage and odor. Presented to the emergency room and admitted for further care. Cultures were taken and he was started on IV antibiotics. Of note, he has also tested positive for covid. Review of Systems Constitutional: Constitutional: Denies fever(s) Eyes: Eyes: Denies blurry vision ENT: Reports Normal hearing present Cardiovascular: Cardiovascular: Denies chest pain and Denies dyspnea Respiratory: Respiratory: Denies dyspnea and Denies wheezing Gastrointestinal: Gastrointestinal: Denies abdominal pain Genitourinary: Genitourinary: Denies urinary urgency Musculoskeletal: Musculoskeletal: Reports as per HPI and Denies numbness Integumentary/Breasts: Skin/Breast: Denies changing lesions and Denies sores Neurologic: Reports Normal hearing present, Denies behavioral changes, Denies confusion, Denies numbness and Denies convulsions Psychiatric: Psychiatric: Denies behavioral changes, Denies confusion and Denies hallucinations Endocrine: Endocrine: Denies heat intolerance Hematologic/Lymphatic: Hematologic/Lymphatic: Denies easy bleeding Allergic/Immunologic: Allergic/Immunologic: Denies wheezing PMFSH Past Medical History Medical History (Updated 07/15/23 @ 13:43 by Shiraz Buenrostro MD) Diabetes Exocrine pancreatic insufficiency Gastroparesis Hypercholesterolemia Hyperlipidemia Hypertension Insulin dependent diabetes mellitus Irritable bowel syndrome with diarrhea 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
[2023-07-15 16:00] VITALS: BP 152/83; PULSE 74; RESP 18; TEMP 36.8; O2SAT 97
[2023-07-15 16:56] LABS: Glucose Point of Care 150 mg/dl (65-105)
[2023-07-15] MEDS: SOD HYPOCHLORITE 1/4 STRENGTH 473 ML 1 APPLIC TOPICAL ×2 (18:03→21:19)
[2023-07-15 20:00] VITALS: BP 169/64; PULSE 99; RESP 22; TEMP 37.4; O2SAT 95
[2023-07-15] MEDS: ATORVASTATIN 40 MG TABLET PO (21:18)
[2023-07-15] MEDS: INSULIN GLARGINE (*BKC) 100 UNITS/ML 29 UNITS SUB-Q (21:24)
[2023-07-15 21:56] LABS: Glucose Point of Care 235 mg/dl (65-105)
[2023-07-15] MEDS: BENZOCAINE/MENTHOL (*BKC) 18 EA LOZENGE 1 LOZENGE PO (22:10)
[2023-07-16] VITALS (7 sets, daily range): BP systolic 141–170; BP diastolic 56–86; PULSE 75–91; RESP 15–20; TEMP 36.3–37.6; O2SAT 95–100; BMI 32.4
[2023-07-16] MEDS: metroNIDAZOLE 500 MG/ISO 100ML 500 MG/100 ML BAG 100 MG IVPB ×3 (01:11→16:36)
[2023-07-16] MEDS: LACTATED RINGERS 1,000 ML 100 ML IV CONT (01:12)
[2023-07-16] MEDS: PROMETHAZINE/CODEINE (*CRX) 5 ML SYRUP PO (05:20)
[2023-07-16] MEDS: HYDROcodone/acetaminophen (*CRX) 5-325 MG TABLET 1 TAB PO ×3 (05:20→21:18)
[2023-07-16 05:30] LABS: Basophils Percent Auto 0.2 % (0.2-1.2); Eosinophils Absolute Auto 0.1 K/mm3 (0-0.3); Eosinophils Percent Auto 0.8 % (0-4.4); Hematocrit 30.6 % (42.0-52.0); Hemoglobin 10.1 g/dL (14.0-18.0); Immature Granulocyte Absolute 0.09 K/mm3 (0.00-0.031); Lymphocytes Absolute Auto 1.32 K/mm3 (0.9-3.2); Lymphocytes Percent Auto 14.3 % (18.3-44.2); Mean Corpuscular Hemoglobin 29.9 pg (26-34); Mean Corpuscular Volume 90.5 fl (80-100); Mean Platelet Volume 9.7 fl (7.4-10.4); Monocytes Absolute Auto 0.7 K/mm3 (0.1-0.6); Monocytes Percent Auto 7.8 % (2.6-8.5); Neutrophils Percent Auto 75.9 % (45.5-73.1); Platelet Count Result 172 k/mm3 (150-375); Red Blood Count 3.38 M/mm3 (4.6-6.20); Red Cell Distribution Width 12.4 % (11.5-14.5); White Blood Count 9.2 K/mm3 (4.5-10.0)
[2023-07-16 05:41] LABS: Anion Gap 2 mmol/L (8-16); Blood Urea Nitrogen 16 mg/dL (9-20); Calcium 8.1 mg/dL (8.4-10.2); Carbon Dioxide 29 mmol/L (22-30); Chloride 101 mmol/L (98-107); Cholesterol 82 mg/dL (0-200); Estimated CRCL calculation 86 ml/min; Estimated Glomerular Filt Rate > 60; Glucose 191 mg/dL (65-110); HDL Direct 22 mg/dL; Potassium 4.3 mmol/L (3.4-5.0); Sodium 132 mmol/L (137-145); Triglycerides 85 mg/dL (<150)
[2023-07-16 05:42] LABS: Hemoglobin A1C 7.2 % (<5.7)
[2023-07-16 05:50] LABS: LDL Cholesterol Direct 46 mg/dL
[2023-07-16 06:51] LABS: Vancomycin Trough 14.7 ug/mL (10.0-20.0)
[2023-07-16 06:53] LABS: CRP 10.1 mg/dL (<1.0)
--- NOTE | 2023-07-16 07:25 | PM.IMPN ---
Progress Note: A&P Assessment and Plan (1) Right hallux osteomyelitis: Code(s): M86.9 - Osteomyelitis, unspecified Status: Acute Assessment and Plan: MRI shows osteomyelitis, incidental fracture of 1st distal phalanx. S/P 5th toe amputation of left foot on 01/2023. Pseudomonas was growing on culture at that time. -Broad spectrum coverage with vanco, cefe, flagyl -subjective reports of chills, body aches. Blood cultures ordered. -wound cultures pending -no leukocytosis at this time, WBC 10 -Orthopedics consulted and recommendations are appreciated -prn acetaminophen for fever greater than 101.4 -prn norco -MRI to r/o bone involvement -Will need surgery once COVID has resolved per orthopedics. -wound care recommending dakins 1-2 times per day (2) Diabetic toe ulcer: Qualifiers: Diabetes mellitus type: type 2 Laterality: left Non-pressure ulcer stage: limited to breakdown of skin Qualified Code(s): E11.621 - Type 2 diabetes mellitus with foot ulcer; L97.521 - Non-pressure chronic ulcer of other part of left foot limited to breakdown of skin Code(s): E11.621 - Type 2 diabetes mellitus with foot ulcer; L97.509 - Non-pressure chronic ulcer of other part of unspecified foot with unspecified severity Status: Acute Assessment and Plan: DM on insulin pump at home -consult software educator for tighter glucose control. Appreciate recommendations. -Accu checks, hypoglycemia protocol ordered, SSI -Hemoglobin A1C 01/2023 6.5% -Broad spectrum IV abx -cultures pending (3) Renal insufficiency: Code(s): N28.9 - Disorder of kidney and ureter, unspecified Status: Acute Assessment and Plan: Cr 1.00, BUN 20, CrCl 94 (4) Hypertension: Qualifiers: Hypertension type: primary hypertension Qualified Code(s): I10 - Essential (primary) hypertension Code(s): I10 - Essential (primary) hypertension Status: Acute Assessment and Plan: -reviewed blood pressures -SBP 150-170s -Stopping IV fluids and restarting antihypertensives which were initially held in setting of VIRGILIO (5) Hypercholesterolemia: Code(s): E78.00 - Pure hypercholesterolemia, unspecified Status: Acute Assessment and Plan: Atorvastatin 40 mg at home -Lipid panel with low HDL otherwise fine. (6) COVID: Code(s): U07.1 - COVID-19 Status: Acute Assessment and Plan: Symptoms started Friday with cough, fever and chills, and headache. -Unclear if fever is related to COVID vs Toe infection. -Conservative treatment for cough with codeine prn -acetaminophen for H/a and fever Subjective Date/time seen: 07/16/23 07:25 Interval history: This is a very pleasant 48-year-old male with insulin-dependent diabetes and hyperlipidemia who presented to the emergency department from home for evaluation of an infected toe. Patient provides the following history. About 2 weeks ago he noticed a callus on the bottom of his right great toe and he has been mindful of the area. Last week it seem to be enlarging and the last 4 or 5 days he has developed pain, redness, and swelling about the toe. He endorses subjective fever and chills as well however he goes on to say that he has had cold symptoms since last Friday to include headache, body ache, sore throat, nausea, decreased appetite, and a cough. After speaking with Dr. Buenrostro's office today he decided to come in to the ER for evaluation as he was worried that the toe infection was getting worse. He has not been on any antibiotics as of yet. In the ED: He was afebrile on arrival with stable vital signs. Labs were significant for a mild leukocytosis with a WBC count of 13.5, stable anemia, BUN 39, creatinine 1.50 (up from baseline of 1.30), glucose 205, CRP 15.9. Chest x-ray showed no acute cardiopulmonary disease. Right foot x-ray showed an ulceration of the great toe, a transverse fracture of the tuft of the 1st
[2023-07-16 08:07] LABS: Glucose Point of Care 189 mg/dl (65-105)
[2023-07-16] MEDS: ENOXAPARIN 40 MG/0.4 ML SYRINGE SUB-Q (09:03)
[2023-07-16] MEDS: CEFEPIME 2 GM/NS 50 ML 2 GM/50 ML BAG IVPB ×2 (09:04→21:10)
[2023-07-16] MEDS: guaiFENesin 12 HR 600 MG TABCR PO ×2 (09:04→21:14)
[2023-07-16] MEDS: ASPIRIN 81 MG ENTERIC TABLET PO (09:04)
[2023-07-16] MEDS: FERROUS SULFATE 325 MG TABLET DR BY MOUTH (09:04)
[2023-07-16] MEDS: lisinopriL 10 MG TABLET PO (09:04)
[2023-07-16] MEDS: SOD HYPOCHLORITE 1/4 STRENGTH 473 ML 1 APPLIC TOPICAL ×2 (09:05→21:15)
[2023-07-16] MEDS: INSULIN ASPART (*BKC) 100 UNITS/ML 10 UNITS SUB-Q ×3 (09:06→16:36)
[2023-07-16] MEDS: BENZOCAINE/MENTHOL (*BKC) 18 EA LOZENGE 1 LOZENGE PO (09:08)
[2023-07-16 11:28] LABS: Glucose Point of Care 188 mg/dl (65-105)
[2023-07-16] MEDS: BENZONATATE 100 MG CAPSULE PO ×2 (11:43→16:36)
--- NOTE | 2023-07-16 15:23 | PM.PNORT ---
Progress Note: A&P Assessment and Plan (1) Right hallux osteomyelitis: Code(s): M86.9 - Osteomyelitis, unspecified Status: Acute Assessment and Plan: treatment options with surgery versus non operative treatment for right hallux osteo reviewed with the patient. Questions answered. He would like to proceed with amputation of the infected portion of the hallux. Discussed nonoperative and operative treatment options with the patient. Risks and benefits of each as well as alternatives were reviewed. All of the patient's questions were answered. The risks of surgery reviewed including but not limited to: Neurovascular damage, wound complication, infection, blood clot, pulmonary embolus, stroke, myocardial infarction, and anesthetic risks up to and including . Continued pain and possible dysfunction were explained. Specific risks of the procedure including later recurrence of deformity. No guarantees were offered. If hardware used, discussed risk of failure/ breakage and possible need for removal. If complications occur, the patient understands the need for further treatment, possible further surgery. Patient verbalizes understanding and wishes to proceed. PLAN: Right hallux amputation, left hallux tenotomy with excisional debridement of ulcer (2) Diabetic toe ulcer: Qualifiers: Diabetes mellitus type: type 2 Laterality: left Non-pressure ulcer stage: limited to breakdown of skin Qualified Code(s): E11.621 - Type 2 diabetes mellitus with foot ulcer; L97.521 - Non-pressure chronic ulcer of other part of left foot limited to breakdown of skin Code(s): E11.621 - Type 2 diabetes mellitus with foot ulcer; L97.509 - Non-pressure chronic ulcer of other part of unspecified foot with unspecified severity Status: Acute Assessment and Plan: chronic left hallux ulcer with clawtoe deformity. Treatment options reviewed with the patient. Questions answered. He would like to proceed with surgical treatment and try to preserve the soft tissue and function of the hallux. Plan for left hallux tenotomy with debridement of ulcer. (3) COVID: Code(s): U07.1 - COVID-19 Status: Acute Assessment and Plan: Symptoms started Friday with cough, fever and chills, and headache. (4) Clawtoe, acquired: Qualifiers: Laterality: left Qualified Code(s): M20.5X2 - Other deformities of toe(s) (acquired), left foot Code(s): M20.5X9 - Other deformities of toe(s) (acquired), unspecified foot Status: Acute Subjective Subjective Date/Time Seen: 07/16/23 15:23 Principal diagnosis: Right hallux osteo, left diabetic toe ulcer Interval history: patient states cough better, overall feeling better. Complains of continued swelling right hallux. Exam Const: General: healthy appearing; No in distress or confusion Orientation/consciousness: oriented to person, oriented to place, oriented to time and No confusion HENMT: Head: normal to inspection, normocephalic and atraumatic Neck: Neck: supple and nontender Resp: Effort & Inspection: normal respiratory effort and no audible wheezes Cardio: Rhythm: regular rhythm Neuro: General: oriented to person, oriented to place, oriented to time and No confusion Extrem: Right upper extremity: normal to inspection Left upper extremity: normal to inspection Right lower extremity: ankle Details: normal to inspection, abnormal ROM Details: with range as follows (ankle dorsiflexion -10 degrees, plantar flexion 40?, inversion 15?, eversion 15?) and other ( good stability all directions); no tenderness, no swelling and no ecchymosis and foot Details: abnormal to inspection, abnormal ROM of toe ( hallux MTP dorsiflexion 40, plantar flexion 20?), vascular exam Details: dorsalis pedis pulse present and normal capillary refill, tendon exam Details: active flexion abnormal and active extension abnormal, motor-sensory exam Details: two poin
[2023-07-16 16:19] LABS: Glucose Point of Care 178 mg/dl (65-105)
[2023-07-16] MEDS: guaiFENesin/CODEINE (*CRX) 200/20 MG 10 ML SYRUP PO (20:21)
[2023-07-16] MEDS: INSULIN GLARGINE (*BKC) 100 UNITS/ML 29 UNITS SUB-Q (21:11)
[2023-07-16] MEDS: INSULIN ASPART (*BKC) 100 UNITS/ML SUB-Q (21:12)
[2023-07-16] MEDS: ATORVASTATIN 40 MG TABLET PO (21:14)
[2023-07-16 22:09] LABS: Glucose Point of Care 226 mg/dl (65-105)
[2023-07-17] VITALS (12 sets, daily range): BP systolic 103–171; BP diastolic 55–80; PULSE 68–83; RESP 14–28; TEMP 36.3–37; O2SAT 92–100
[2023-07-17] MEDS: metroNIDAZOLE 500 MG/ISO 100ML 500 MG/100 ML BAG 100 MG IVPB ×3 (01:32→17:45)
[2023-07-17 06:30] LABS: Basophils Percent Auto 0.4 % (0.2-1.2); Eosinophils Absolute Auto 0.3 K/mm3 (0-0.3); Eosinophils Percent Auto 3.1 % (0-4.4); Hematocrit 30.8 % (42.0-52.0); Hemoglobin 10.2 g/dL (14.0-18.0); Immature Granulocyte Absolute 0.13 K/mm3 (0.00-0.031); Immature Granulocyte Percent A 1.5 % (0-0.5); Lymphocytes Percent Auto 18.9 % (18.3-44.2); Mean Corpuscular HGB Conc 33.1 g/dl (32-36); Mean Corpuscular Hemoglobin 30.3 pg (26-34); Mean Corpuscular Volume 91.4 fl (80-100); Mean Platelet Volume 10.1 fl (7.4-10.4); Monocytes Absolute Auto 0.8 K/mm3 (0.1-0.6); Monocytes Percent Auto 9.3 % (2.6-8.5); Neutrophils Absolute Auto 5.7 K/mm3 (1.3-6.7); Neutrophils Percent Auto 66.8 % (45.5-73.1); Platelet Count Result 227 k/mm3 (150-375); Red Blood Count 3.37 M/mm3 (4.6-6.20); Red Cell Distribution Width 12.4 % (11.5-14.5); White Blood Count 8.5 K/mm3 (4.5-10.0)
[2023-07-17 06:44] LABS: Alanine Aminotransferase 19 U/L (6-50); Albumin Level 3.4 g/dL (3.5-5.1); Alkaline Phosphatase 80 U/L (38-126); Anion Gap 1 mmol/L (8-16); Aspartate Amino Transferase 26 U/L (17-59); Bilirubin,Total 0.5 mg/dL (0.2-1.3); Blood Urea Nitrogen 15 mg/dL (9-20); Calcium 8.1 mg/dL (8.4-10.2); Carbon Dioxide 30 mmol/L (22-30); Chloride 100 mmol/L (98-107); Estimated CRCL calculation 86 ml/min; Estimated Glomerular Filt Rate > 60; Glucose 173 mg/dL (65-110); Magnesium 1.7 mg/dL (1.6-2.3); Potassium 4.1 mmol/L (3.4-5.0); Sodium 131 mmol/L (137-145)
[2023-07-17 08:07] LABS: Glucose Point of Care 227 mg/dl (65-105)
--- NOTE | 2023-07-17 08:17 | WPDHPUPDATE1 ---
History and Physical Update Update Date/Time: 07/17/23 08:17 History and Physical has been reviewed, including an updated exam of the patient. There are NO changes in the patient's condition. Risks, benefits, and alternatives have been discussed and questions answered. Patient agrees to proceed with procedure.
[2023-07-17] MEDS: INSULIN ASPART (*BKC) 100 UNITS/ML SUB-Q ×2 (08:45→20:25)
[2023-07-17] MEDS: INSULIN ASPART (*BKC) 100 UNITS/ML 10 UNITS SUB-Q ×3 (08:47→17:46)
[2023-07-17] MEDS: guaiFENesin/CODEINE (*CRX) 200/20 MG 10 ML SYRUP PO ×2 (08:49→22:54)
[2023-07-17] MEDS: lisinopriL 10 MG TABLET PO (09:07)
[2023-07-17] MEDS: CEFEPIME 2 GM/NS 50 ML 2 GM/50 ML BAG IVPB ×2 (09:07→20:20)
--- NOTE | 2023-07-17 10:24 | WPDANESEPPF ---
Anes - Initial Pre Proc Eval Procedure: Operation Date: 07/17/23 10:30 Proposed Procedures p Right Hallux Amputation And Debridement Of Left Hallux - Shiraz Buenrostro MD Date/Time: 07/17/23 10:24 Surgeon: Priya Hernandez DO Pre Op Diagnosis: Diabetic Foot Infected Ulcer Patient Data Age: 48 Gender: M Height: 1.75 m Weight: 97.8 kg Last Vital Signs Temp 37.0 C 07/17/23 08:00 Pulse 83 07/17/23 08:00 Resp 28 H 07/17/23 08:00 BP 136/75 07/17/23 08:00 Pulse Ox 96 07/17/23 08:00 O2 Del Method Room Air 07/16/23 23:36 Allergies Allergy/AdvReac Type Severity Reaction Status Date / Time canagliflozin [From Invokana] AdvReac Severe Other Verified 07/14/23 12:29 Home Medications Medication Instructions Recorded Confirmed Type aspirin 81 mg tablet,delayed 81 mg PO DAILY 08/28/20 07/14/23 History release atorvastatin 20 mg tablet 40 mg PO HS 09/23/22 07/14/23 History blood-glucose meter,continuous 02/25/23 07/14/23 History (Dexcom G6 Sign Hanger) blood-glucose sensor (Dexcom G6 02/25/23 07/14/23 History Sensor device) blood-glucose transmitter (Dexcom 02/25/23 07/14/23 History G6 Transmitter device) insulin lispro-aabc 100 unit/mL See Rx Instructions .Route .COMPLEX 02/25/23 07/14/23 History subcutaneous solution (Lyumjev U-100 Insulin) insulin pump cart,cont inf,BT 02/25/23 07/14/23 History (Omnipod Dash Pods (Gen 4) subcutaneous cartridge) lisinopril 2.5 mg tablet 10 mg PO DAILY 02/25/23 07/14/23 History ferrous sulfate 325 mg (65 mg 325 mg PO DAILY 07/14/23 07/14/23 History iron) tablet (FeroSul) rifaximin 550 mg tablet (Xifaxan) 550 mg PO BID PRN Abdominal 07/14/23 07/14/23 History Discomfort Laboratory Tests 07/16/23 07/16/23 07/16/23 11:19 16:12 21:06 WBC RBC Hgb Hct MCV MCH MCHC RDW Plt Count MPV Immature Gran % (Auto) Neut % (Auto) Lymph % (Auto) [place] % (Auto) Eos % (Auto) Baso % (Auto) Lymph # (Auto) [place] # (Auto) Eos # (Auto) Baso # (Auto) Abs Immat Gran (auto) Absolute Neuts (auto) Absolute Nucleated RBC Nucleated RBC % Sodium Potassium Chloride Carbon Dioxide Anion Gap BUN Creatinine Estim Creat Clear Calc Estimated GFR Glucose POC Capillary Glucose 188 H mg/dl 178 H mg/dl 226 H mg/dl (65-105) (65-105) (65-105) Calcium Magnesium Total Bilirubin AST ALT Alkaline Phosphatase Total Protein Albumin 07/17/23 07/17/23 07/17/23 05:36 05:37 08:00 WBC 8.5 K/mm3 (4.5-10.0) RBC 3.37 L M/mm3 (4.6-6.20) Hgb 10.2 L g/dL (14.0-18.0) Hct 30.8 L % (42.0-52.0) MCV 91.4 fl (80-100) MCH 30.3 pg (26-34) MCHC 33.1 g/dl (32-36) RDW 12.4 % (11.5-14.5) Plt Count 227 k/mm3 (150-375) MPV 10.1 fl (7.4-10.4) Immature Gran % (Auto) 1.5 H % (0-0.5) Neut % (Auto) 66.8 % (45.5-73.1) Lymph % (Auto) 18.9 % (18.3-44.2) [place] % (Auto) 9.3 H % (2.6-8.5) Eos % (Auto) 3.1 % (0-4.4) Baso % (Auto) 0.4 % (0.2-1.2) Lymph # (Auto) 1.60 K/mm3 (0.9-3.2) [place] # (Auto) 0.8 H K/mm3 (0.1-0.6) Eos # (Auto) 0.3 K/mm3 (0-0.3) Baso # (Auto) 0.0 K/mm3 (0.0-0.1) Abs Immat Gran (auto) 0.13 H K/mm3 (0.00-0.031) Absolute Neuts (auto) 5.7 K/mm3 (1.3-6.7) Absolute Nucleated RBC 0.0 K/mm3
--- NOTE | 2023-07-17 10:30 | PC.NURSE ---
To OR per stretcher.
[2023-07-17] MEDS: BUPivacaine HCL 0.5% 10 ML AMP 30 ML INFILTRATE (11:11)
[2023-07-17] MEDS: LACTATED RINGERS 1,000 ML 30 ML IV CONT (11:36)
--- NOTE | 2023-07-17 11:58 | P.OP_ITS ---
Procedure Note - Detailed Date of Procedure 07/17/23 Pre-op Diagnosis Diabetic Foot Infected Ulcer left hallux, right hallux osteomyelitis Post-op Diagnosis Same Procedure Performed Right hallux amputation, left hallux ulcer excisional debridement to muscle layer, open tenotomy. Surgeon Shiraz Buenrostro MD Dental Instructor 1st economist research assistant Anesthesia General Indications 48-year-old with diabetes and peripheral neuropathy, history of previous osteomyelitis with amputation toes presents with osteo myelitis infection of the right hallux, persistent ulcer deformity of the left hallux. Description of Procedure Patient identified in the preoperative holding. Informed consent given. Operative extremity marked. Patient received intravenous antibiotics. Patient brought to the operating room where underwent general anesthetic by anesthesia team. Positioned supine on operating room table. Time-out performed confirming the patient, site of the surgery and the plan. Right foot prepped and draped in usual sterile surgical fashion using Betadine prep solution. There was an ulcer over the plantar aspect of the hallux which revealed full-thickness necrosis with exposed bone of the distal phalanx. No ability to heal the wound and no soft tissue coverage of the bone, amputation of the hallux was indicated. Fifteen blade knife used to make fishmouth shaped incision at the midportion of the hallux. Hemostasis controlled with electrocautery. Interphalangeal joint incised circumferentially with a 15 blade knife and hallux removed and passed off the table. Thorough irrigation done. Articular surface of the distal proximal phalanx removed with a rongeur and smoothed. Wound thoroughly irrigated again. Wound closed with 3 O Monocryl interrupted suture for the subcutaneous tissue and 3 O nylon interrupted sutures for the skin. Sterile dressings applied. Left foot then addressed. Left foot prepped draped sterile surgical fashion using prep solution. The ulcer on the distal aspect the hallux plantar surface 2 x 1 cm. 15 blade knife used to sharply excise devitalized nonviable tissue. Skin, subcutaneous tissue and muscle tissue sharply excised and passed off. Finally measurement 2 x 1 cm. New thoroughly irrigated with saline. Horizontal incision made in the plantar crease of the hallux 15 blade knife. Hemostasis controlled electrocautery. Retractors placed. The flexor tendon was identified and sharply released transversely. Wound thoroughly irrigated. Skin approximated with 4-0 nylon interrupted suture. Sterile dressing applied. Patient awoke from anesthesia, extubated and taken to the recovery room in stable condition. All sponge needle and instrument counts correct at the end the case. Estimated Blood Loss -5.0 Tourniquet Time 30 Drains No Packing No Pathology None sent Complications No immediate complications Condition Stable Disposition PACU
[2023-07-17 12:15] LABS: Glucose Point of Care 154 mg/dl (65-105)
[2023-07-17 12:32] LABS: Glucose Point of Care 136 mg/dl (65-105)
--- NOTE | 2023-07-17 12:42 | PC.NURSE ---
Returned from OR per stretcher at 1225. Report received from Melody FRANCO.
[2023-07-17] MEDS: ASPIRIN 81 MG ENTERIC TABLET PO (13:08)
[2023-07-17] MEDS: BENZONATATE 100 MG CAPSULE PO ×2 (13:08→17:44)
[2023-07-17] MEDS: guaiFENesin 12 HR 600 MG TABCR PO ×2 (13:08→20:20)
[2023-07-17] MEDS: FERROUS SULFATE 325 MG TABLET DR BY MOUTH (13:09)
--- NOTE | 2023-07-17 14:29 | PM.IMPN ---
Progress Note: A&P Assessment and Plan (1) Right hallux osteomyelitis: Code(s): M86.9 - Osteomyelitis, unspecified Status: Acute Assessment and Plan: MRI shows osteomyelitis, incidental fracture of 1st distal phalanx. S/P 5th toe amputation of left foot on 01/2023. Pseudomonas was growing on culture at that time. -Broad spectrum coverage with vanco, cefe, flagyl -subjective reports of chills, body aches. Blood cultures ordered. -wound cultures pending -no leukocytosis at this time, WBC 10 -Orthopedics consulted and recommendations are appreciated -prn acetaminophen for fever greater than 101.4 -prn norco -MRI to r/o bone involvement -Will need surgery once COVID has resolved per orthopedics. -wound care recommending dakins 1-2 times per day (2) Diabetic toe ulcer: Qualifiers: Diabetes mellitus type: type 2 Laterality: left Non-pressure ulcer stage: limited to breakdown of skin Qualified Code(s): E11.621 - Type 2 diabetes mellitus with foot ulcer; L97.521 - Non-pressure chronic ulcer of other part of left foot limited to breakdown of skin Code(s): E11.621 - Type 2 diabetes mellitus with foot ulcer; L97.509 - Non-pressure chronic ulcer of other part of unspecified foot with unspecified severity Status: Acute Assessment and Plan: DM on insulin pump at home -consult clinical educator for tighter glucose control. Appreciate recommendations. -Accu checks, hypoglycemia protocol ordered, SSI -Hemoglobin A1C 01/2023 6.5% -Broad spectrum IV abx -cultures pending (3) Renal insufficiency: Code(s): N28.9 - Disorder of kidney and ureter, unspecified Status: Acute Assessment and Plan: Cr 1.00, BUN 20, CrCl 94 (4) Hypertension: Qualifiers: Hypertension type: primary hypertension Qualified Code(s): I10 - Essential (primary) hypertension Code(s): I10 - Essential (primary) hypertension Status: Acute Assessment and Plan: -reviewed blood pressures -SBP 150-170s -Stopping IV fluids and restarting antihypertensives which were initially held in setting of VIRGILIO (5) Hypercholesterolemia: Code(s): E78.00 - Pure hypercholesterolemia, unspecified Status: Acute Assessment and Plan: Atorvastatin 40 mg at home -Lipid panel with low HDL otherwise fine. (6) COVID: Code(s): U07.1 - COVID-19 Status: Acute Assessment and Plan: Symptoms started Friday with cough, fever and chills, and headache. -Unclear if fever is related to COVID vs Toe infection. -Conservative treatment for cough with codeine prn -acetaminophen for H/a and fever Subjective Date/time seen: 07/17/23 14:29 Interval history: patient states cough better, overall feeling better. Complains of continued swelling right hallux. Exam Narrative: General: well-nourished, well-appearing 48-year-old male, sitting up in bed, comfortable, NARD Neuro: awake, alert and oriented x4, speech clear, no focal neuro deficits noted HEENMT: normocephalic, atraumatic, EOMI, sclerae anicteric, moist oral mucosa Respiratory: Clear to auscultation bilaterally without crackles, rhonchi or wheezes, nonlabored breathing Cardio: regular rate, regular rhythm with S1-S2 Abdomen: nondistended, normoactive bowel sounds, soft, nontender to palpation Extremities: no edema, erythema, or tenderness to palpation, DP pulses 2+ bilaterally Skin: Calloused ulceration to base of right great toe with eschar, purulent drainage, and foul smell, surrounding edema and erythema POA. She post incision and debridement, dressings are dry, and clean, . Psych: appropriate mood and affect, judgment and insight intact Objective Data Vital Signs Vital Signs: Vital Signs - 24 hr 07/16/23 16:00 07/16/23 20:00 07/17/23 00:00 Temperature 98.1 F 97.9 F 98.4 F Pulse Rate 87 78 78 Respiratory Rate 15 16 14 Blood Pressure 161/82 H 166/71 H 171/74 H Pulse Oximetry 1
[2023-07-17] MEDS: HYDROcodone/acetaminophen (*CRX) 5-325 MG TABLET 1 TAB PO (15:22)
[2023-07-17 16:37] LABS: Glucose Point of Care 147 mg/dl (65-105)
[2023-07-17] MEDS: SENNA/DOCUSATE SODIUM TABLET 2 TAB PO (17:44)
--- NOTE | 2023-07-17 18:29 | PC.NURSE ---
On 07/17/23, the GREENHOUSE OR NURSERY TRANSPLANTER, Frieda Cortes, provided care and completed ZYB documentation on this patient. I have reviewed the GREENHOUSE OR NURSERY TRANSPLANTER's documentation and agree with the findings.
[2023-07-17] MEDS: ATORVASTATIN 40 MG TABLET PO (20:21)
[2023-07-17] MEDS: INSULIN GLARGINE (*BKC) 100 UNITS/ML 29 UNITS SUB-Q (20:25)
[2023-07-17 21:23] LABS: Glucose Point of Care 279 mg/dl (65-105)
[2023-07-17 22:40] LABS: Glucose Point of Care 232 mg/dl (65-105)
[2023-07-17] MEDS: ONDANSETRON INJ 4 MG/2 ML VIAL IV PUSH (22:44)
[2023-07-18] MEDS: metroNIDAZOLE 500 MG/ISO 100ML 500 MG/100 ML BAG 100 MG IVPB (00:37)
[2023-07-18 05:02] VITALS: BP 161/72; PULSE 73; RESP 20; TEMP 36.4; O2SAT 98
[2023-07-18] MEDS: ONDANSETRON INJ 4 MG/2 ML VIAL IV PUSH (06:35)
[2023-07-18 06:40] LABS: Basophils Percent Auto 0.5 % (0.2-1.2); Eosinophils Absolute Auto 0.2 K/mm3 (0-0.3); Eosinophils Percent Auto 2.1 % (0-4.4); Hemoglobin 10.8 g/dL (14.0-18.0); Immature Granulocyte Absolute 0.24 K/mm3 (0.00-0.031); Immature Granulocyte Percent A 2.7 % (0-0.5); Lymphocytes Percent Auto 15.8 % (18.3-44.2); Mean Corpuscular HGB Conc 33.8 g/dl (32-36); Mean Corpuscular Hemoglobin 30.4 pg (26-34); Mean Corpuscular Volume 90.1 fl (80-100); Mean Platelet Volume 9.5 fl (7.4-10.4); Monocytes Absolute Auto 0.7 K/mm3 (0.1-0.6); Monocytes Percent Auto 7.8 % (2.6-8.5); Neutrophils Absolute Auto 6.3 K/mm3 (1.3-6.7); Neutrophils Percent Auto 71.1 % (45.5-73.1); Platelet Count Result 246 k/mm3 (150-375); Red Blood Count 3.55 M/mm3 (4.6-6.20); Red Cell Distribution Width 12.1 % (11.5-14.5); White Blood Count 8.8 K/mm3 (4.5-10.0)
[2023-07-18 06:47] LABS: Anion Gap 5 mmol/L (8-16); Blood Urea Nitrogen 14 mg/dL (9-20); Calcium 8.5 mg/dL (8.4-10.2); Carbon Dioxide 33 mmol/L (22-30); Chloride 98 mmol/L (98-107); Estimated CRCL calculation 78 ml/min; Estimated Glomerular Filt Rate > 60; Glucose 185 mg/dL (65-110); Potassium 4.4 mmol/L (3.4-5.0); Sodium 136 mmol/L (137-145)
[2023-07-18 08:10] LABS: Glucose Point of Care 238 mg/dl (65-105)
--- NOTE | 2023-07-18 08:19 | WPDANESPN ---
Anes - Prog Note Post-Op Date/Time: 07/18/23 08:19 Vital Signs: Last Vital Signs Temp 36.4 C 07/18/23 05:02 Pulse 73 07/18/23 05:02 Resp 20 07/18/23 05:02 BP 161/72 H 07/18/23 05:02 Pulse Ox 98 07/18/23 05:02 O2 Del Method Room Air 07/17/23 12:05 O2 Flow Rate 8 07/17/23 11:50 Pain Score (VAS): 3 I/O: Intake & Output 07/17/23 07/18/23 07/18/23 23:59 07:59 15:59 Intake Total 2490 350 Balance 2490 350 Laboratory Tests 07/18/23 06:26 07/18/23 06:26 07/17/23 07/17/23 07/17/23 11:55 12:30 16:12 WBC RBC Hgb Hct MCV MCH MCHC RDW Plt Count MPV Immature Gran % (Auto) Neut % (Auto) Lymph % (Auto) [place] % (Auto) Eos % (Auto) Baso % (Auto) Lymph # (Auto) [place] # (Auto) Eos # (Auto) Baso # (Auto) Abs Immat Gran (auto) Absolute Neuts (auto) Absolute Nucleated RBC Nucleated RBC % Sodium Potassium Chloride Carbon Dioxide Anion Gap BUN Creatinine Estim Creat Clear Calc Estimated GFR Glucose POC Capillary Glucose 154 H 136 H 147 H Calcium 07/17/23 07/17/23 07/18/23 20:24 22:32 06:26 WBC 8.8 RBC 3.55 L Hgb 10.8 L Hct 32.0 L MCV 90.1 MCH 30.4 MCHC 33.8 RDW 12.1 Plt Count 246 MPV 9.5 Immature Gran % (Auto) 2.7 H Neut % (Auto) 71.1 Lymph % (Auto) 15.8 L [place] % (Auto) 7.8 Eos % (Auto) 2.1 Baso % (Auto) 0.5 Lymph # (Auto) 1.40 [place] # (Auto) 0.7 H Eos # (Auto) 0.2 Baso # (Auto) 0.0 Abs Immat Gran (auto) 0.24 H Absolute Neuts (auto) 6.3 Absolute Nucleated RBC 0.0 Nucleated RBC % 0.0 Sodium 136 L Potassium 4.4 Chloride 98 Carbon Dioxide 33 H Anion Gap 5 L BUN 14 Creatinine 1.20 Estim Creat Clear Calc 78 Estimated GFR > 60 Glucose 185 H POC Capillary Glucose 279 H 232 H Calcium 8.5 07/18/23 08:00 WBC RBC Hgb Hct MCV MCH MCHC RDW Plt Count MPV Immature Gran % (Auto) Neut % (Auto) Lymph % (Auto) [place] % (Auto) Eos % (Auto) Baso % (Auto) Lymph # (Auto) [place] # (Auto) Eos # (Auto) Baso # (Auto) Abs Immat Gran (auto) Absolute Neuts (auto) Absolute Nucleated RBC Nucleated RBC % Sodium Potassium Chloride Carbon Dioxide Anion Gap BUN Creatinine Estim Creat Clear Calc Estimated GFR Glucose POC Capillary Glucose 238 H Calcium Microbiology 07/14/23 11:13 Toe Right Great Wound Culture - Final Patient Feedback: Patient satisfied with anesthetic care.
[2023-07-18 08:36] VITALS: BP 160/80; PULSE 72; RESP 22; TEMP 36.2; O2SAT 94
[2023-07-18] MEDS: guaiFENesin 12 HR 600 MG TABCR PO (09:30)
[2023-07-18] MEDS: FERROUS SULFATE 325 MG TABLET DR BY MOUTH (09:30)
[2023-07-18] MEDS: SENNA/DOCUSATE SODIUM TABLET 2 TAB PO (09:30)
[2023-07-18] MEDS: ASPIRIN 81 MG ENTERIC TABLET PO (09:31)
[2023-07-18] MEDS: BENZONATATE 100 MG CAPSULE PO ×2 (09:31→12:49)
[2023-07-18] MEDS: lisinopriL 10 MG TABLET PO (09:31)
[2023-07-18] MEDS: SOD HYPOCHLORITE 1/4 STRENGTH 473 ML 1 APPLIC TOPICAL (09:33)
[2023-07-18] MEDS: INSULIN ASPART (*BKC) 100 UNITS/ML 10 UNITS SUB-Q (09:34)
[2023-07-18] MEDS: INSULIN ASPART (*BKC) 100 UNITS/ML SUB-Q (09:35)
[2023-07-18 11:33] LABS: Glucose Point of Care 164 mg/dl (65-105)
[2023-07-18 11:41] VITALS: BP 166/65; PULSE 80; RESP 22; TEMP 36.4; O2SAT 94
--- NOTE | 2023-07-18 11:44 | PM.IMPN ---
Progress Note: A&P Assessment and Plan (1) Right hallux osteomyelitis: Code(s): M86.9 - Osteomyelitis, unspecified Status: Acute Assessment and Plan: MRI shows osteomyelitis, incidental fracture of 1st distal phalanx. S/P 5th toe amputation of left foot on 01/2023. Pseudomonas was growing on culture at that time. -Broad spectrum coverage with vanco, cefe, flagyl -subjective reports of chills, body aches. Blood cultures ordered. -wound cultures pending -no leukocytosis at this time, WBC 10 -Orthopedics consulted and recommendations are appreciated -prn acetaminophen for fever greater than 101.4 -prn norco -MRI to r/o bone involvement -Right hallux amputation, left hallux ulcer excisional debridement to muscle layer, open tenotomy 07/17 Wound culture has no growth of bacteria Patient is afebrile, hemodynamically stable, leukocytosis resolves . (2) Diabetic toe ulcer: Qualifiers: Diabetes mellitus type: type 2 Laterality: left Non-pressure ulcer stage: limited to breakdown of skin Qualified Code(s): E11.621 - Type 2 diabetes mellitus with foot ulcer; L97.521 - Non-pressure chronic ulcer of other part of left foot limited to breakdown of skin Code(s): E11.621 - Type 2 diabetes mellitus with foot ulcer; L97.509 - Non-pressure chronic ulcer of other part of unspecified foot with unspecified severity Status: Acute Assessment and Plan: DM on insulin pump at home -consult school curriculum developer for tighter glucose control. Appreciate recommendations. -Accu checks, hypoglycemia protocol ordered, SSI -Hemoglobin A1C 01/2023 6.5% -Broad spectrum IV abx changes to doxycycline X Augmentin p.o. -cultures negative (3) Renal insufficiency: Code(s): N28.9 - Disorder of kidney and ureter, unspecified Status: Acute Assessment and Plan: Cr 1.00, BUN 20, CrCl 94 (4) Hypertension: Qualifiers: Hypertension type: primary hypertension Qualified Code(s): I10 - Essential (primary) hypertension Code(s): I10 - Essential (primary) hypertension Status: Acute Assessment and Plan: -reviewed blood pressures -SBP 150-170s -Stopping IV fluids and restarting antihypertensives which were initially held in setting of VIRGILIO Increase lisinopril to 20 mg daily p.o. (5) Hypercholesterolemia: Code(s): E78.00 - Pure hypercholesterolemia, unspecified Status: Acute Assessment and Plan: Atorvastatin 40 mg at home -Lipid panel with low HDL otherwise fine. (6) COVID: Code(s): U07.1 - COVID-19 Status: Acute Assessment and Plan: Symptoms started Friday with cough, fever and chills, and headache. -Conservative treatment for cough with codeine prn -acetaminophen for H/a and fever Not patient has no fever, short of breath, no O2 desaturation and room air No need treatment Subjective Date/time seen: 07/18/23 11:44 Interval history: I saw and examined patient today, patient feels pain is tolerable, patient is afebrile, hemodynamically stable, patient has no shortness of breath, chest pain, abdomen pain, nausea vomiting diarrhea dysuria Exam Narrative: General: well-nourished, well-appearing 48-year-old male, sitting up in bed, comfortable, NARD Neuro: awake, alert and oriented x4, speech clear, no focal neuro deficits noted HEENMT: normocephalic, atraumatic, EOMI, sclerae anicteric, moist oral mucosa Respiratory: Clear to auscultation bilaterally without crackles, rhonchi or wheezes, nonlabored breathing Cardio: regular rate, regular rhythm with S1-S2 Abdomen: nondistended, normoactive bowel sounds, soft, nontender to palpation Extremities: no edema, erythema, or tenderness to palpation, DP pulses 2+ bilaterally Skin: Calloused ulceration to base of right great toe with eschar, purulent drainage, and foul smell, surrounding edema and erythema POA. status post of incision and debridement, dressings are dry, and clean
--- NOTE | 2023-07-18 12:07 | PM.DS ---
DS: Admitting Diagnosis Discharge Date today Admitting Diagnosis ?Right hallux osteomyelitis: ?Code(s): M86.9 - Osteomyelitis, unspecifie Diabetic ulcer Uncontrolled hypertension DS: Discharge Diagnosis Discharge Diagnosis (1) Right hallux osteomyelitis: Code(s): M86.9 - Osteomyelitis, unspecified Status: Acute Assessment and Plan: MRI shows osteomyelitis, incidental fracture of 1st distal phalanx. S/P 5th toe amputation of left foot on 01/2023. Pseudomonas was growing on culture at that time. -Broad spectrum coverage with vanco, cefe, flagyl -subjective reports of chills, body aches. Blood cultures ordered. -wound cultures pending -no leukocytosis at this time, WBC 10 -Orthopedics consulted and recommendations are appreciated -prn acetaminophen for fever greater than 101.4 -prn norco -MRI to r/o bone involvement -Right hallux amputation, left hallux ulcer excisional debridement to muscle layer, open tenotomy 07/17 Wound culture has no growth of bacteria Patient is afebrile, hemodynamically stable, leukocytosis resolves . (2) Diabetic toe ulcer: Qualifiers: Diabetes mellitus type: type 2 Laterality: left Non-pressure ulcer stage: limited to breakdown of skin Qualified Code(s): E11.621 - Type 2 diabetes mellitus with foot ulcer; L97.521 - Non-pressure chronic ulcer of other part of left foot limited to breakdown of skin Code(s): E11.621 - Type 2 diabetes mellitus with foot ulcer; L97.509 - Non-pressure chronic ulcer of other part of unspecified foot with unspecified severity Status: Acute Assessment and Plan: DM on insulin pump at home -consult family life educator for tighter glucose control. Appreciate recommendations. -Accu checks, hypoglycemia protocol ordered, SSI -Hemoglobin A1C 01/2023 6.5% -Broad spectrum IV abx changes to doxycycline X Augmentin p.o. -cultures negative (3) Renal insufficiency: Code(s): N28.9 - Disorder of kidney and ureter, unspecified Status: Acute Assessment and Plan: Cr 1.00, BUN 20, CrCl 94 (4) Hypertension: Qualifiers: Hypertension type: primary hypertension Qualified Code(s): I10 - Essential (primary) hypertension Code(s): I10 - Essential (primary) hypertension Status: Acute Assessment and Plan: -reviewed blood pressures -SBP 150-170s -Stopping IV fluids and restarting antihypertensives which were initially held in setting of VIRGILIO Increase lisinopril to 20 mg daily p.o. (5) Hypercholesterolemia: Code(s): E78.00 - Pure hypercholesterolemia, unspecified Status: Acute Assessment and Plan: Atorvastatin 40 mg at home -Lipid panel with low HDL otherwise fine. (6) COVID: Code(s): U07.1 - COVID-19 Status: Acute Assessment and Plan: Symptoms started Friday with cough, fever and chills, and headache. -Conservative treatment for cough with codeine prn -acetaminophen for H/a and fever Not patient has no fever, short of breath, no O2 desaturation and room air No need treatment DS: Summary Hospital Course Hospital Course: Per H&P, this is a very pleasant 48-year-old male with insulin-dependent diabetes and hyperlipidemia who presented to the emergency department from home for evaluation of an infected toe. Patient provides the following history. About 2 weeks ago he noticed a callus on the bottom of his right great toe and he has been mindful of the area. Last week it seem to be enlarging and the last 4 or 5 days he has developed pain, redness, and swelling about the toe. He endorses subjective fever and chills as well however he goes on to say that he has had cold symptoms since last Friday to include headache, body ache, sore throat, nausea, decreased appetite, and a cough. After speaking with Dr. Buenrostro's office today he decided to come in to the ER for evaluation as he was worried that the toe infection was getting worse. He has not be
--- NOTE | 2023-07-18 12:16 | PM.PNORT ---
Progress Note: A&P Assessment and Plan (1) Right hallux osteomyelitis: Code(s): M86.9 - Osteomyelitis, unspecified Status: Acute Assessment and Plan: Postoperative day 1 right hallux amputation and left hallux debridement with tenotomy. Operative findings and treatment reviewed with the patient. Recommend daily dressing changes bilaterally. Weight bear as tolerated with postop shoe. May discharge when medically cleared and stable. Follow up in orthopedic office in 2 weeks. (2) Diabetic toe ulcer: Qualifiers: Diabetes mellitus type: type 2 Laterality: left Non-pressure ulcer stage: limited to breakdown of skin Qualified Code(s): E11.621 - Type 2 diabetes mellitus with foot ulcer; L97.521 - Non-pressure chronic ulcer of other part of left foot limited to breakdown of skin Code(s): E11.621 - Type 2 diabetes mellitus with foot ulcer; L97.509 - Non-pressure chronic ulcer of other part of unspecified foot with unspecified severity Status: Acute Subjective Subjective Date/Time Seen: 07/18/23 12:16 Post Op day: 1 Principal diagnosis: Bilateral toe ulcer Interval history: patient awake and alert. No complaints overnight. Exam Const: General: healthy appearing; No in distress or confusion Orientation/consciousness: oriented to person, oriented to place, oriented to time and No confusion Extrem: Right upper extremity: normal to inspection Left upper extremity: normal to inspection Right lower extremity: ankle Details: normal to inspection, abnormal ROM Details: with range as follows (ankle dorsiflexion -10 degrees, plantar flexion 40?, inversion 15?, eversion 15?) and other ( good stability all directions); no tenderness, no swelling and no ecchymosis and foot Details: abnormal to inspection, abnormal ROM of toe ( hallux MTP dorsiflexion 40, plantar flexion 20?), vascular exam Details: dorsalis pedis pulse present and normal capillary refill, tendon exam Details: active flexion abnormal and active extension abnormal, motor-sensory exam Details: two point discrimination abnormal Location: in all toes and light-touch abnormal Location: in all toes and other (Hallux metatarsophalangeal motion 20? dorsiflexion/10? plantar flexion) Left lower extremity: ankle Details: normal to inspection and abnormal ROM Details: with range as follows (ankle dorsiflexion -10 degrees, plantar flexion 40?, inversion 15?, eversion 15?); no tenderness and no swelling and foot Details: normal capillary refill, abnormal ROM of toe, vascular exam (2+DP pulse, good cap refill all toes), tendon exam active flexion abnormal of the great toe and active extension abnormal of the great toe and motor-sensory exam two point discrimination abnormal and light-touch abnormal in all toes; no tenderness and no crepitus Other: Left foot dressing changed. Hallux toe incision well approximated. No drainage. New dressing applied. Good capillary refill. Negative Homans sign. Right foot dressing changed. Hallux amputation site with mild sanguinous drainage. Good capillary refill otherwise. No erythema or swelling. Negative Homans sign. New dressing applied. Objective Data Vital Signs Vital Signs: Vital Signs - 24 hr 07/17/23 12:25 07/17/23 12:55 07/17/23 13:55 Temperature 97.8 F 97.8 F 97.8 F Pulse Rate 80 77 83 Respiratory Rate 14 14 14 Blood Pressure 143/74 H 123/67 143/76 H Pulse Oximetry 97 96 100 Oxygen Delivery 07/17/23 17:55 07/17/23 21:55 07/18/23 05:02 Temperature 97.8 F 97.7 F 97.6 F Pulse Rate 83 74 73 Respiratory Rate 14 20 20 Blood Pressure 143/76 H 166/74 H 161/72 H Pulse Oximetry 100 99 98 Oxygen Delivery 07/18/23 08:36 07/18/23 11:41 07/18/23 09:30 Temperature 97.2 F L 97.5 F L Pulse Rate 72 80 Respiratory Rate 22 H 22 H Blood Pressure 160/80 H 166/65 H Pulse Oximetry 94 94 Oxygen Delivery Room Air Intake/Output Intake/Output: Intake & Output 07/15/23
== END 2023-07-18 14:40 | disposition home or self-care (01) | DRG 500 ==
LOC: ANHED 11:46 → ANH3MEDSUR 12:02
PROVIDERS: Nurse Practitioner Acute Care; Orthopaedic Surgery; Physician Assistant; Admitting Provider Student in an Organized Health Care Education/Training Program; Emergency Provider Physician Assistant; PCP Family Medicine; Visit Provider Hospitalist
PROC: 0Y6P0Z0 Detachment at Right 1st Toe, Complete, Open Approach (ICD-10-PCS; principal; 2023-07-17 10:30)
DX: M86.171 Other acute osteomyelitis, right ankle and foot (principal); U07.1 COVID-19; E11.628 Type 2 diabetes mellitus with other skin complications; L03.031 Cellulitis of right toe; E11.621 Type 2 diabetes mellitus with foot ulcer; L97.521 Non-pressure chronic ulcer of other part of left foot limited to breakdown of skin; S92.421A Displaced fracture of distal phalanx of right great toe, initial encounter for closed fracture; E11.43 Type 2 diabetes mellitus with diabetic autonomic (poly)neuropathy; E86.0 Dehydration; E78.00 Pure hypercholesterolemia, unspecified; I10 Essential (primary) hypertension; N28.9 Disorder of kidney and ureter, unspecified; K58.9 Irritable bowel syndrome, unspecified; Z79.4 Long term (current) use of insulin; Z79.82 Long term (current) use of aspirin; Z96.41 Presence of insulin pump (external) (internal); Z89.422 Acquired absence of other left toe(s); Z89.421 Acquired absence of other right toe(s)
CPT/HCPCS: 36415; 71046; 73630; 73718; 80048; 80053; 80061; 80202; 81001; 82948; 83036; 83735; 84100; 85025; 85027; 86140; 87040; 87070; 87205; 87637; 88305; 88311; 96365; 97161; 97165; 99285; A9270; J0692; J1650; J1815; J1836; J2250; J2405; J2704; J3010; J3370; J7030; J7120

== ENCOUNTER 2023-07-28 13:03 | Outpatient (CLI) | payer OTHER, SELFPAY ==
--- NOTE | ~2023-07-28 | XR_ITS ---
XR foot RT min 3V DATE: 07/28/2023 13:28 INDICATION: First toe amputation TECHNIQUE: 4 views COMPARISON: 07/15/2023 MR right foot 07/14/2023 right foot FINDINGS: There is interval amputation of the distal aspect of the proximal phalanx and complete ampu tation of the distal phalanx of the first toe. Small bone fragments are noted in the distal soft tiss ues of the first toe stump. Status post right second toe amputation including complete absence of all 3 phalanges. No periosteal reaction or bone destruction is evident. No fracture or dislocation. Prominent anterior and posterior tibial and dorsalis pedis and metatarsal artery calcifications, like ly due to diabetes. IMPRESSION: Interval amputation of distal phalanx and head of proximal phalanx since 07/14/2023 Reviewed, dictated and finalized at location B.
== END 2023-07-28 13:04 | disposition home or self-care (01) ==
PROVIDERS: PCP Family Medicine; Visit Provider Orthopaedic Surgery
DX: S98.111D Complete traumatic amputation of right great toe, subsequent encounter (principal); X58.XXXD Exposure to other specified factors, subsequent encounter
CPT/HCPCS: 73630

== ENCOUNTER 2024-06-14 11:09 | Emergency (ER) | payer OTHER, SELFPAY ==
--- NOTE | ~2024-06-14 | XR_ITS ---
Clinical Indication: Chest pain PA and lateral views of the chest: Comparison: 07/14/2023 Findings: The lungs are clear, without evidence of focal consolidation or pleural effusion. Cardiome diastinal silhouette is within normal limits. Bones and soft tissues are unremarkable. Impression: Normal chest. Reviewed, dictated and finalized at location . Impression: Normal chest.
--- NOTE | ~2024-06-14 | US_ITS ---
COMPLETE ABDOMINAL ULTRASOUND Ordering provider: Romina Crockett MD History: . RUQ abdominal pain . Comparison: None. FINDINGS: LIVER: Normal size. Fat infiltration.. No focal hepatic lesions or perihepatic fluid collections are identified. Portal vein flow is hepatofugal. GALLBLADDER: Unremarkable. No evidence for stones, sludge, gallbladder wall thickening or pericholecy stic fluid collections. Wall thickness is 0.3 cm. A negative sonographic Browning's sign was noted. BILIARY DUCTS: No evidence for intra or extrahepatic biliary dilation. Common bile duct measures 3 mm in diameter which is within normal limits. PANCREAS: Not visualized. UPPER ABDOMINAL AORTA: Normal in caliber. IVC: Patent. FREE FLUID: None. IMPRESSION: Fat infiltration of the liver otherwise, Unremarkable complete ultrasound of the abdomen. Reviewed, dictated and finalized at location A. IMPRESSION: Fat infiltration of the liver otherwise, Unremarkable complete ultrasound of th e abdomen.
--- NOTE | ~2024-06-14 | CT_ITS ---
Non-contrast CT scan of the Abdomen and Pelvis Clinical indication: Right flank pain Technique: 2.5 mm axial scans were obtained through the abdomen and pelvis without intravenous or or al contrast. Dose reduction technique was used on this scan by utilizing automated exposure control a nd iterative reconstruction technique. The dose-length product (DLP) was 982.62 mGy-cm. Findings: Images through the lung bases reveal no abnormalities. There is no evidence of renal or ureteral calculi. The kidneys and the ureters are nondilated. The liver, spleen, pancreas, and adrenals appear normal. Gallbladder is prominently distended, but ot herwise unremarkable. There are atherosclerotic calcifications of the aorta. There is no evidence of bowel obstruction. Images through the pelvis were performed. There is no evidence of ascites or lymphadenopathy. Urinary bladder unremarkable. No pelvic mass seen. Impression: Distended gallbladder. No other significant findings. Reviewed, dictated and finalized at [facility]. Impression: Distended gallbladder. No other significant findings.
[2024-06-14 11:28] VITALS: BP 138/110; PULSE 86; RESP 20; O2SAT 98
--- NOTE | 2024-06-14 12:09 | ED.BACK ---
HPI - Back Pain/Injury General Chief Complaint: Back Pain/Injury Stated Complaint: back pain Time Seen by Provider: 06/14/24 12:00 History of Present Illness HPI Narrative: Patient is a 49 year old male with history of DM, here with right sided flank pain. Patient notes that he has had intermittent right flank pain over the last 2 weeks. He notes that pain is intermittent in nature, non radiating and he is unsure if it changes with food. He notes that he has had a cough for about a month, non productive in nature. No fever or chills. He denies dysuria, hematuria, history of UTI. Of note, he did get seen by his doctor right before this pain began for a long standing issue with an abdominal hernia in his mid abdomen, has had an outpatient CT, they were not concerned about urgent surgery. Related Data Home Medications Medication Instructions Recorded Confirmed aspirin 81 mg tablet,delayed 81 mg PO DAILY 08/28/20 05/31/24 release atorvastatin 20 mg tablet 40 mg PO HS 09/23/22 05/31/24 blood-glucose meter,continuous 02/25/23 05/31/24 (Dexcom G6 Aquatics Coordinator) blood-glucose sensor (Dexcom G6 02/25/23 05/31/24 Sensor device) blood-glucose transmitter (Dexcom 02/25/23 05/31/24 G6 Transmitter device) insulin lispro-aabc 100 unit/mL See Rx Instructions .Route .COMPLEX 02/25/23 05/31/24 subcutaneous solution (Lyumjev U-100 Insulin) insulin pump cart,cont inf,BT 02/25/23 05/31/24 (Omnipod Dash Pods (Gen 4) subcutaneous cartridge) lisinopril 2.5 mg tablet 10 mg PO DAILY 02/25/23 05/31/24 ferrous sulfate 325 mg (65 mg 325 mg PO DAILY 07/14/23 05/31/24 iron) tablet (FeroSul) Allergies Allergy/AdvReac Type Severity Reaction Status Date / Time canagliflozin [From Invokana] AdvReac Severe Other Verified 06/14/24 11:33 Review of Systems Review of Systems: All systems reviewed & are unremarkable except as noted in HPI and below PMFSH Past Medical History Medical History Diabetes Encounter for postoperative care Exocrine pancreatic insufficiency Gastroparesis Hypercholesterolemia Hyperlipidemia Hypertension Insulin dependent diabetes mellitus Irritable bowel syndrome with diarrhea 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 Code status: Full code. Smoking status: Never smoker Alcohol intake: never Substance use: never Substance use type: does not use Lack of Transportation: No Lack of Food: Never True Current Housing: I Have Housing Concerned About Future Housing: No Difficulty Paying Gas/Electric Bills: No Difficulty Paying for Meds: No Currently Unemployed: No Education: High School Diploma/GED Difficulty w/ Childcare or Family Care: No Living arrangements: with family Additional living arrangements comments: Lives in [place]. Additional occupation/education comments: [employer]. Spiritual care concerns: No Exam Narrative: GENERAL: Well-appearing, well-nourished, and in no acute distress. HEAD: Normocephalic, atraumatic. EYES: PERRLA and EOMI. ENT: Nares clear. Mucous membranes moist. NECK: Supple. CHEST: Clear to auscultation. No respiratory distress. HEART: Regular rate and rhythm. Normal peripheral pulses. ABDOMEN: Soft, suprapubic and RUQ tenderness, negative Browning sign, nondis
[2024-06-14 12:59] LABS: Basophils Absolute Auto 0.1 K/mm3 (0.0-0.1); Basophils Percent Auto 0.7 % (0.2-1.2); Eosinophils Absolute Auto 0.2 K/mm3 (0-0.3); Eosinophils Percent Auto 2.9 % (0-4.4); Hematocrit 41.7 % (42.0-52.0); Hemoglobin 14.7 g/dL (14.0-18.0); Immature Granulocyte Absolute 0.06 K/mm3 (0.00-0.031); Immature Granulocyte Percent A 0.9 % (0-0.5); Lymphocytes Absolute Auto 1.47 K/mm3 (0.9-3.2); Mean Corpuscular HGB Conc 35.3 g/dl (32-36); Mean Corpuscular Hemoglobin 30.4 pg (26-34); Mean Corpuscular Volume 86.3 fl (80-100); Mean Platelet Volume 10.3 fl (7.4-10.4); Monocytes Absolute Auto 0.4 K/mm3 (0.1-0.6); Monocytes Percent Auto 5.7 % (2.6-8.5); Neutrophils Absolute Auto 4.8 K/mm3 (1.3-6.7); Neutrophils Percent Auto 68.8 % (45.5-73.1); Platelet Count Result 220 k/mm3 (150-375); Red Blood Count 4.83 M/mm3 (4.6-6.20); Red Cell Distribution Width 12.8 % (11.5-14.5)
[2024-06-14 13:09] LABS: Lipase 82 U/L (23-300)
[2024-06-14 13:11] LABS: Alanine Aminotransferase 24 U/L (6-50); Albumin Level 4.8 g/dL (3.5-5.1); Alkaline Phosphatase 88 U/L (38-126); Anion Gap 13 mmol/L (4-12); Aspartate Amino Transferase 28 U/L (17-59); Bilirubin,Total 0.7 mg/dL (0.2-1.3); Blood Urea Nitrogen 54 mg/dL (9-20); Calcium 9.2 mg/dL (8.4-10.2); Carbon Dioxide 22 mmol/L (22-30); Chloride 99 mmol/L (98-107); Estimated CRCL calculation 37 ml/min; Estimated Glomerular Filt Rate 27; Glucose 316 mg/dL (65-110); Potassium 5.1 mmol/L (3.4-5.0); Sodium 134 mmol/L (137-145)
[2024-06-14 13:13] LABS: Appearance Urine Clear (Clear); Bacteria Urine None Seen /hpf; Bilirubin Urine Negative (Negative); Blood Urine Negative (Negative); Color Urine Yellow (Yellow); Glucose Urine UA 3+ mg/dL (Negative); Ketones Urine Negative (Negative); Leukocyte Esterase Ur Negative LEU/UL (Negative); Need Manual Microscopic Reviewed; Nitrate Urine Negative (Negative); Protein Urine 1+ mg/dL (Negative); RBC Urine 0-2 /hpf (0-2); Specific Grav Ur 1.025 (1.001-1.035); Squamous Epithelial Cell Urine None Seen /hpf (Few); Urobilinogen Urine 0.2 mg/dL (<2.0); WBC Urine 0-5 /hpf (0-3)
[2024-06-14 13:14] LABS: Add Urine Microscopic? YES
[2024-06-14 14:52] VITALS: BP 137/84; PULSE 89; RESP 15; O2SAT 98
[2024-06-14] MEDS: LACTATED RINGERS 1,000 ML 999 ML IV CONT ×3 (14:52→16:58)
[2024-06-14 15:16] LABS: Creatine Kinase 215 U/L (55-170)
[2024-06-14 16:27] LABS: Anion Gap 10 mmol/L (4-12); Blood Urea Nitrogen 48 mg/dL (9-20); Calcium 9.1 mg/dL (8.4-10.2); Carbon Dioxide 23 mmol/L (22-30); Chloride 102 mmol/L (98-107); Estimated CRCL calculation 48 ml/min; Estimated Glomerular Filt Rate 36; Glucose 293 mg/dL (65-110); Potassium 4.9 mmol/L (3.4-5.0); Sodium 135 mmol/L (137-145)
[2024-06-14 17:44] VITALS: BP 197/109; PULSE 90; RESP 15; TEMP 36.6; O2SAT 98
== END 2024-06-14 17:46 | disposition home or self-care (01) ==
PROVIDERS: Emergency Provider Student in an Organized Health Care Education/Training Program; PCP Family Medicine
DX: N17.9 Acute kidney failure, unspecified (principal); E86.0 Dehydration; R10.9 Unspecified abdominal pain; E11.43 Type 2 diabetes mellitus with diabetic autonomic (poly)neuropathy; K31.84 Gastroparesis; E78.5 Hyperlipidemia, unspecified; K58.0 Irritable bowel syndrome with diarrhea; K86.81 Exocrine pancreatic insufficiency; Z89.421 Acquired absence of other right toe(s); Z79.82 Long term (current) use of aspirin; Z79.4 Long term (current) use of insulin
CPT/HCPCS: 36415; 71046; 74176; 76705; 80048; 80053; 81001; 82550; 83690; 85025; 96360; 96361; 99284; J7120

== ENCOUNTER 2024-10-14 12:30 | Outpatient (CLI) | payer OTHER, SELFPAY ==
--- NOTE | 2024-10-14 15:13 | ECG_ITS ---
Test Date: 2024-10-14 15:40:06 Measurements Intervals [place] Rate: 73 P: 42 SD: 164 QRS: -21 QRSD: 86 T: 15 QT: 374 QTc: 413 Interpretive Statements SINUS RHYTHM VOLTAGE CRITERIA FOR LVH BORDERLINE R WAVE PROGRESSION, ANTERIOR LEADS BASELINE ARTIFACT- I, II, III, AVR, AVL BORDERLINE ECG No previous ECG available for comparison Electronically Signed On 10-14-2024 16:43:52 MANAGER [employer] by Michael Chaves D.O.
[2024-10-14 16:15] LABS: Prothrombin Time 13.2 Seconds (11.1-14.7)
[2024-10-14 17:27] LABS: Anion Gap 7 mmol/L (4-12); Blood Urea Nitrogen 38 mg/dL (9-20); Calcium 8.5 mg/dL (8.4-10.2); Carbon Dioxide 26 mmol/L (22-30); Chloride 105 mmol/L (98-107); Estimated Glomerular Filt Rate 43; Glucose 243 mg/dL (65-110); Potassium 4.6 mmol/L (3.4-5.0); Sodium 138 mmol/L (137-145)
== END 2024-10-14 12:31 | disposition home or self-care (01) ==
PROVIDERS: Anesthesiology; PCP Family Medicine; Visit Provider Surgery
DX: Z01.812 Encounter for preprocedural laboratory examination (principal); N28.9 Disorder of kidney and ureter, unspecified; R94.31 Abnormal electrocardiogram [ECG] [EKG]
CPT/HCPCS: 36415; 80048; 85610; 85730; 93005

== ENCOUNTER 2024-10-18 00:20 | Day surgery (SDC) | payer OTHER, SELFPAY ==
[2024-10-11 14:11] VITALS: BMI 31.8
--- NOTE | 2024-10-11 14:15 | PC.NURSE ---
Report to the Outpatient Waiting Room, entrance under the green pavilion located off [facility], at time _0600_ on date _[id number]_. Planned Procedure Time: _0730_.? Time changes happen often and if your time is changed the preop area will call you the afternoon before. - You and your visitor will be asked to self-screen and do not enter if you have any COVID symptoms. Please call surgeon if you need to reschedule. - A mask is optional within the hospital at this time. Patients may have clear liquids (water, carbonated beverages, clear teas, apple juice) until 3 hours prior to surgery with a maximum of 20 ounces. - No food from midnight until time of surgery and no smoking Take only the following medications with a SIP of water on the morning of surgery: __Continue Omnipod DO NOT STOP ANY OF YOUR OTHER PRESCRIPTION MEDICATIONS PRIOR TO SURGERY EXCEPT THE FOLLOWING Medications to discontinue per physician __None____ Please no make-up, nail marshallese, hairspray, perfume, deodorant, or body powder the day of surgery.? No jewelry (including any body piercings) or valuables the day of surgery, leave them at home.? Please take a shower or bath the night before, or the morning of, surgery with an antibacterial soap.? Wear comfortable, loose fitting clothing.? - Jewelry must be removed prior to entering the operating room.? Rings and piercings that are not removed may be cut off. - The hospital will not accept responsibility for valuables.? - Please leave all valuables, including medications, at home the day of surgery. If you are going home after surgery, a licensed recycle driver must drive you home.? - NO public transportation without another adult if you receive anesthesia. - We recommend that an adult stay with you for 24 hours following discharge. - We also recommend that you do not drive, make important decision, drink alcoholic beverages, or take any drugs that were not prescribed by your health care provider for at least 24 hours after your discharge time. Follow any additional instructions given to you from your surgeon. Telephone instructions given to _Justin___and asked if any additional questions and then verbalized understanding. Patient advised to call surgeon office or pre surgery nurse liaison [phone] if any additional questions.
[2024-10-18] VITALS (8 sets, daily range): BP systolic 97–173; BP diastolic 58–85; PULSE 80–96; RESP 12–20; TEMP 36.1–36.3; O2SAT 94–100
[2024-10-18] MEDS: ACETAMINOPHEN 500 MG TABLET 1000 MG PO (06:20)
[2024-10-18] MEDS: LACTATED RINGERS 1,000 ML 30 ML IV CONT (06:25)
[2024-10-18 06:30] LABS: Glucose Point of Care 309 mg/dl (65-105)
[2024-10-18] MEDS: KETOROLAC 15 MG/ML VIAL (*BKC) IV PUSH ×2 (06:30→08:06)
--- NOTE | 2024-10-18 07:23 | WPDHPUPDATE1 ---
History and Physical Update Update Date/Time: 10/18/24 07:23 History and Physical has been reviewed, including an updated exam of the patient. There are NO changes in the patient's condition. Risks, benefits, and alternatives have been discussed and questions answered. Patient agrees to proceed with procedure.
--- NOTE | 2024-10-18 07:25 | WPDANESEPPF ---
Anes - Initial Pre Proc Eval Procedure: Operation Date: 10/18/24 07:30 Proposed Procedures p Open Umbilical Hernia Repair - Haim Boyd MD Date/Time: 10/18/24 07:25 Surgeon: Haim Boyd MD Pre Op Diagnosis: reducible Umbilical Hernia Patient Data Age: 49 Gender: M Height: 1.75 m Weight: 99.1 kg Last Vital Signs Temp 96.9 F L 10/18/24 06:04 Pulse 86 10/18/24 06:04 Resp 16 10/18/24 06:04 BP 151/85 H 10/18/24 06:04 Pulse Ox 100 10/18/24 06:04 O2 Del Method Room Air 10/18/24 06:04 Allergies Allergy/AdvReac Type Severity Reaction Status Date / Time canagliflozin [From Invokana] AdvReac Severe Other Verified 10/18/24 07:11 Home Medications Medication Instructions Recorded Confirmed Type blood-glucose sensor (Dexcom G6 02/25/23 10/11/24 History Sensor device) blood-glucose transmitter (Dexcom 02/25/23 10/11/24 History G6 Transmitter device) insulin lispro-aabc 100 unit/mL See Rx Instructions .Route .COMPLEX 02/25/23 10/11/24 History subcutaneous solution (Lyumjev U-100 Insulin) insulin pump cart,cont inf,BT 02/25/23 10/11/24 History (Omnipod Dash Pods (Gen 4) subcutaneous cartridge) lisinopril 2.5 mg tablet 10 mg PO DAILY 02/25/23 10/11/24 History [id number]-[id number]-[id number] 1 cap PO .COMPLEX #300 caplets 04/21/24 10/11/24 Rx 40,000-126,000-168,000 unit capsule, delay rel (Zenpep) colestipol 1 gram tablet 1 g PO BID 1 month #60 tabs 05/31/24 10/11/24 Rx Laboratory Tests 10/18/24 06:27 POC Capillary Glucose 309 H mg/dl (65-105) Patient hx anesthesia problems: none Family hx anesthesia problems: none Results Review: All pre-operative results and documents have been reviewed as part of the pre-operative evaluation. 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 Code status: Full code. Smoking status: Never smoker Alcohol intake: never Substance use: never Substance use type: does not use Lack of Transportation: No Lack of Food: Never True Current Housing: I Have Housing Concerned About Future Housing: No Difficulty Paying Gas/Electric Bills: No Difficulty Paying for Meds: No Currently Unemployed: No Education: High School Diploma/GED Difficulty w/ Childcare or Family Care: No Living arrangements: with family Additional living arrangements comments: Lives in [place]. Additional occupation/education comments: [employer]. Spiritual care concerns: No Anes - Eval Final PreProcedure Day of Procedure 10/18/24 07:25 Patient weight: obese Heart: regular rate and rhythm Lungs: clear to auscultation Airway: Mallampati scale class II Neurological: alert and oriented Last oral intake: >/= 8 hours ASA classification: III Emergent: no Anesthetic plan: proceed Anesthesia type and monitoring: general LMA and standard monitoring Results Review: All pre-operative results and documents have been reviewed as part of the pre-operative evaluation. Informed Consent: The patient's anesthetic plan and its attendant risks and benefits were discussed with the patient/family/POA. Questions were solicited and answers provided to the satisfaction of the patient/family/POA.
[2024-10-18] MEDS: ceFAZolin 2 GM/D5W 50 ML 2 GM/50 ML BAG IVPB (07:29)
--- NOTE | 2024-10-18 08:21 | W.PM.PROC2 ---
Procedure Note - Detailed Date of Procedure 10/18/24 Pre-op Diagnosis Reducible Umbilical Hernia Post-op Diagnosis Same Procedure Performed Open umbilical hernia repair without mesh. Surgeon Haim Boyd MD Anesthesia General Indications Patient is a 49-year-old male who presented with minor discomfort around his umbilicus. He had a CT scan abdomen pelvis showed a very small umbilical hernia with a defect measuring about 0.5cm. Due to his symptoms of soreness of the umbilicus he presents now for elective umbilical hernia repair without mesh. Findings Patient had a very small 0.5cm defect at the umbilicus. There was just preperitoneal tissue through the defect. Description of Procedure After informed consent was obtained patient brought to the operating room was placed supine position and then general LMA anesthesia was administered. The abdomen was then prepped and draped usual sterile fashion. A time-out was then performed correctly identifying the patient as well as procedure to be performed. He was given perioperative IV antibiotics. I then made a small infraumbilical incision along the curvature of the infraumbilical fold with a scalpel. Dissection carried down through the dermis skin with a scalpel and then electrocautery was used to dissect down to the umbilical stalk. I then encircled the umbilical stalk bluntly with a Bernice clamp. Then disconnected the dermis of the umbilicus from the underlying umbilical stalk and very small hernia sac with electrocautery. I then proceeded to evaluate the hernia defect was 0.5cm in diameter. There was a very small amount of preperitoneal tissue coming through the defect. I then repaired the defect closed with 5 separate 0 Ethibond sutures placed with good 1cm bites on each side of the fascia. This closed the defect very nicely without any tension. I then irrigated out the incision sterile saline solution. Hemostasis was good. 1% lidocaine mixed with 0.5% Marcaine was injected the fascia around the closed defect and the subcutaneous tissue around the incision. The inverted umbilicus was then recreated by placing 3-0 Vicryl suture the dermis of the umbilicus and tacking it down to the underlying fascia. Directed 2-0 Vicryl sutures used close subcutaneous tissues which is then followed by a layer of interrupted 3-0 Vicryl sutures the deep dermal layer. The skin edges were then approximated utilizing a running subcuticular 4 Monocryl suture. Skin glue was then used to seal the incision. The patient tolerated the procedure well no complications. All sponges, needles, and instrument counts were correct at the end procedure. EBL was _2__cc. The patient was awakened and taken to recovery in stable and satisfactory condition. Implants None Estimated Blood Loss 2 Drains No Packing No Pathology None sent Complications No immediate complications Condition Stable Disposition PACU [facility] Billing Surgery - Charge Forward: Surgery Billing
--- NOTE | 2024-10-18 08:40 | SUR.PHASEI ---
per Dr Marroquin no treatment for blood sugar of 302mg/DL
[2024-10-18 08:41] LABS: Glucose Point of Care 302 mg/dl (65-105)
== END 2024-10-18 10:30 | disposition home or self-care (01) ==
PROVIDERS: PCP Family Medicine; Visit Provider Surgery
PROC: (CPT 49591; principal; 2024-10-18 07:30)
DX: K42.9 Umbilical hernia without obstruction or gangrene (principal); E11.9 Type 2 diabetes mellitus without complications; E78.00 Pure hypercholesterolemia, unspecified; I10 Essential (primary) hypertension; K58.0 Irritable bowel syndrome with diarrhea; K86.81 Exocrine pancreatic insufficiency; K31.84 Gastroparesis; G90.9 Disorder of the autonomic nervous system, unspecified; E66.9 Obesity, unspecified; Z68.32 Body mass index [BMI] 32.0-32.9, adult; Z79.4 Long term (current) use of insulin; Z98.890 Other specified postprocedural states; Z89.421 Acquired absence of other right toe(s); Z86.0100 Personal history of colon polyps, unspecified; Z80.9 Family history of malignant neoplasm, unspecified; Z82.49 Family history of ischemic heart disease and other diseases of the circulatory system
CPT/HCPCS: 49591; 82948; A9270; J0690; J1100; J1885; J2003; J2004; J2250; J2405; J2704; J3010; J7120